=== PATIENT | male | born 1980 | race Caucasian/White ===

== ENCOUNTER 2024-11-03 16:47 | Emergency (ER) | payer OTHER, SELFPAY ==
[2024-11-03 16:53] VITALS: BP 152/91; PULSE 93; RESP 20; TEMP 37.2; O2SAT 97
--- NOTE | 2024-11-03 17:01 | ED.AMS ---
HPI - Altered Mental Status General Chief Complaint: Altered Mental Status <Leticia Rosado PA-C - Last Filed: 11/03/24 19:28> Stated Complaint: possible Narcan overdose? <Leticia Rosado PA-C - Last Filed: 11/03/24 19:28> Time Seen by Provider: 11/03/24 17:03 <Leticia Rosado PA-C - Last Filed: 11/03/24 19:28> Focused HPI: Patient is a 44-year-old male who presents the ED with report of altered mental status. Mother at bedside assisted in providing information. Mother reports patient has a history of schizoaffective/bipolar disorder. Has been off of his medications for at least the last 1 year. Has been previously seen by [facility]. Reports over the last 1 week, patient has been reporting he has been hearing voices inside his head. Voices have been telling him to do and not do things. Patient reports that he smoked weed and speed today. He then states he began freaking out. Per mother, patient then drove himself to [facility] today and used his girlfriend's points to buy himself Narcan. He then used the narcan. Patient is unsure if there was fentanyl in the speed. Unsure why he used the narcan. Denied trouble breathing. Patient unable to tell me if he is having any thoughts or voices telling him to harm himself. GENERAL: Fidgety, unable to sit still, and in no acute distress. HEAD: Normocephalic, atraumatic. CHEST: Clear to auscultation. ?No respiratory distress. HEART: Tachycardic with regular rhythm.? NEURO: ?Alert and oriented x3. No focal deficits PSYCHIATRIC: Rapid quiet speech, not appropriate to conversation, flat affect. Patient screened in triage and initial orders placed.? ?Additional care and disposition to be based upon?diagnostic testing and treatment. <Leticia Rosado PA-C - Last Filed: 11/03/24 19:28> Source: patient and family <ALEC Valdivia Last Filed: 11/03/24 19:28> Mode of arrival: ambulatory <Leticia Rosado PA-C - Last Filed: 11/03/24 19:28> Limitations: altered mental status <Leticia Rosado PA-C - Last Filed: 11/03/24 19:28> History of Present Illness HPI narrative: Agree with the HPI above. Family member and girlfriend at bedside provides the majority collateral formation. Patient is awake and answering questions but states that he feels like he is ?in a game show , the world is narcissistic, , and other paranoid delusions . He denies any homicidal or suicidal ideation. Admits to smoking a notes substance today potentially methamphetamine according to the family. No fentanyl or opiate use. Narcan had no effect on the patient. <Wil Rubio MD - Last Filed: 11/03/24 21:49> Related Data Allergies/Adverse Reactions: Allergies Allergy/AdvReac Type Severity Reaction Status Date / Time benztropine Allergy Unknown Unknown Verified 01/04/17 08:46 quetiapine Allergy Unknown Nervousness Verified 01/04/17 08:45 Sulfa (Sulfonamide Allergy Unknown Verified 08/29/17 21:20 Antibiotics) <Leticia Rosado PA-C - Last Filed: 11/03/24 19:28> Review of Systems Review of Systems: As reviewed above in HPI <Wil Rubio MD - Last Filed: 11/03/24 21:49> Exam Narrative: GENERAL: Fidgety, not any acute distress, avoids eye contact and has a flat affect HEAD: [Normocephalic, atraumatic.] EYES: [PERRLA and EOMI.] ENT: Nares clear, no rhinorrhea or epistaxis. Mucous membranes moist. NECK: Supple. CHEST: [Clear to auscultation. No respiratory distress.] HEART: [Regular rate and rhythm]. No murmur heard. [Normal peripheral pulses.] ABDOMEN: [Soft, nondistended], [nontender], [No rigidity or guarding] EXTREMITIES: Normal range of motion. [No edema.] SKIN: Warm, dry, no rash. NEURO: [No focal deficits]. Alert and oriented [x3.] PSYCH: Fidgeting, not in any distress, avoids eye contact and flat affect. Denies homicidal or suicide ideation. Endorses paranoia and substance use <Wil Rubio MD - Last Filed: 11/03/24 21:49> Course Vital Signs Vital signs: Vital Signs Temperature 37.2 C 11/03/24 16:53 Pulse Rate 93 11/03/24 16:53 Respiratory Rate 20 11/03/24 16:53 Blood Pressure 152/91 H 11/03/24 16:53 Pulse Oximetry 97 11/03/24 16:53 Oxygen Delivery Room Air 11/03/24 16:53 Temperature 37.2 C 11/03/24 16:53 Pulse Rate 52 L 11/03/24 19:28 Respiratory Rate 16 11/03/24 19:28 Blood Pressure 155/88 H 11/03/24 19:28 Pulse Oximetry 97 11/03/24 19:28 Oxygen Delivery Room Air 11/03/24 16:53 <Leticia Rosado PA-C - Last Filed: 11/03/24 19:28> Vital Signs Temperature 37.2 C 11/03/24 16:53 Pulse Rate 93 11/03/24 16:53 Respiratory Rate 20 11/03/24 16:53 Blood Pressure 152/91 H 11/03/24 16:53 Pulse Oximetry 97 11/03/24 16:53 Oxygen Delivery Room Air 11/03/24 16:53 Temperature 37.2 C 11/03/24 16:53 Pulse Rate 52 L 11/03/24 19:28 Respiratory Rate 16 11/03/24 19:28 Blood Pressure 155/88 H 11/03/24 19:28 Pulse Oximetry 97 11/03/24 19:28 Oxygen Delivery Room Air 11/03/24 16:53 <Wil Rubio MD - Last Filed: 11/03/24 21:49> MDM - Altered Mental Status MDM Narrative Medical decision making narrative: MSE by BRIGITTE in triage. <Leticia Rosado PA-C - Last Filed: 11/03/24 19:28> MSE by BRIGITTE in triage. 44-year-old male with history of bipolar schizoaffective disorder presenting to the emergency department for evaluation of possible psychiatric illness. Patient has not been taking his medications in over a year according to his family member. He was smoking unknown substance today potentially weed laced with something like methamphetamine as that is when his girlfriend at bedside thinks happened. Patient ended up using Narcan today without any signs of opiate use or opiate toxidrome. Patient had no effect with this medication. Patient is very fidgety, has a flat affect, expresses paranoia and delusions. He appears as he has somewhat flattened affect and denies any homicidal or suicidal ideation and does not appear to be a present threat to himself or others based on his statements, exam and historical features. He has normal vital signs. Family is concerned that he has had tardive dyskinesia and worsening psychiatric illness and requesting psychiatric evaluation. He is not any distress and currently cooperative. Psychiatric clearance workup ordered, blood drawn. COVID swab obtained. Prior to completing his workup I was informed by nursing staff that patient had eloped from the ED. <Wil Rubio MD - Last Filed: 11/03/24 21:49> Medical Records Attestation: I reviewed the patient's medical records. <Wil Rubio MD - Last Filed: 11/03/24 21:49> Lab Data Attestation: I reviewed the patient's lab results. <Wil Rubio MD - Last Filed: 11/03/24 21:49> Result diagrams: 11/03/24 19:59 11/03/24 19:59 <Leticia Rosado PA-C - Last Filed: 11/03/24 19:28> Labs: Lab Results 11/03/24 11/03/24 11/03/24 Range/Units 19:34 19:59 21:27 WBC 13.0 H (4.5-10.0) K/mm3 RBC 4.90 (4.6-6.20) M/mm3 Hgb 14.2 (14.0-18.0) g/dL Hct 42.6 (42.0-52.0) % MCV 86.9 (80-100) fl MCH 29.0 (26-34) pg MCHC 33.3 (32-36) g/dl RDW 13.2 (11.5-14.5) % Plt Count 461 H (150-375) k/mm3 MPV 8.8 (7.4-10.4) fl Immature Gran % (Auto) 0.3 (0-0.5) % Neut % (Auto) 76.8 H (45.5-73.1) % Lymph % (Auto) 16.1 L (18.3-44.2) % Coke % (Auto) 6.0 (2.6-8.5) % Eos % (Auto) 0.5 (0-4.4) % Baso % (Auto) 0.3 (0.2-1.2) % Lymph # (Auto) 2.09 (0.9-3.2) K/mm3 Coke # (Auto) 0.8 H (0.1-0.6) K/mm3 Eos # (Auto) 0.1 (0-0.3) K/mm3 Baso # (Auto) 0.0 (0.0-0.1) K/mm3 Abs Immat Gran (auto) 0.04 H (0.00-0.031) K/mm3 Absolute Neuts (auto) 9.9 H (1.3-6.7) K/mm3 Absolute Nucleated RBC 0.000 (0.0-0.012) K/mm3 Nucleated RBC % 0.0 (0.0-0.2) % Sodium 137 (137-145) mmol/L Potassium 4.2 (3.4-5.0) mmol/L Chloride 102 (98-107) mmol/L Carbon Dioxide 27 (22-30) mmol/L Anion Gap 8 (4-12) mmol/L BUN 8 L (9-20) mg/dL Creatinine 0.92 (0.7-1.3) mg/dL Estim Creat Clear Calc 80 ml/min Estimated GFR > 60 (59 - ) Glucose 117 H (65-110) mg/dL Calcium 9.7 (8.4-10.2) mg/dL Total Bilirubin 0.6 (0.2-1.3) mg/dL AST 26 (17-59) U/L ALT 23 (6-50) U/L Alkaline Phosphatase 71 (38-126) U/L Total Protein 7.0 (6.3-8.2) g/dL Albumin 4.5 (3.5-5.1) g/dL TSH 2.190 (0.465-4.680) uIU/mL Urine Color Yellow (Yellow) Urine Appearance Clear (Clear) Urine pH 6.5 (5.0-9.0) Ur Specific [place] 1.011 (1.001-1.035) Urine Protein Negative (Negative) mg/dL Urine Glucose (UA) Negative (Negative) mg/dL Urine Ketones Negative (Negative) mg/dL Ur Blood (Man) Negative (Negative) Urine Nitrate Negative (Negative) Urine Bilirubin Negative (Negative) Urine Urobilinogen 0.2 (<2.0) mg/dL Leukocyte Esterase Rfl Negative (Negative) ABUNDIO/UL Salicylates < 1.0 L (2-20) mg/dL Urine Opiates Screen Pending Urine Methadone Screen Pending Acetaminophen < 10 L (10-30) ug/mL Ur Barbiturates Screen Pending Ur Phencyclidine Scrn Pending Ur Amphetamine Screen Pending U Benzodiazepines Scrn Pending Urine Cocaine Screen Pending U Cannabinoids Screen Pending Ethyl Alcohol < 10 (<10) mg/dL SARS-CoV-2 RNA (RT-PCR) Negative (Negative) <Leticia Rosado PA-C - Last Filed: 11/03/24 19:28> Lab Results 11/03/24 11/03/24 11/03/24 Range/Units 19:34 19:59 21:27 WBC 13.0 H (4.5-10.0) K/mm3 RBC 4.90 (4.6-6.20) M/mm3 Hgb 14.2 (14.0-18.0) g/dL Hct 42.6 (42.0-52.0) % MCV 86.9 (80-100) fl MCH 29.0 (26-34) pg MCHC 33.3 (32-36) g/dl RDW 13.2 (11.5-14.5) % Plt Count 461 H (150-375) k/mm3 MPV 8.8 (7.4-10.4) fl Immature Gran % (Auto) 0.3 (0-0.5) % Neut % (Auto) 76.8 H (45.5-73.1) % Lymph % (Auto) 16.1 L (18.3-44.2) % Coke % (Auto) 6.0 (2.6-8.5) % Eos % (Auto) 0.5 (0-4.4) % Baso % (Auto) 0.3 (0.2-1.2) % Lymph # (Auto) 2.09 (0.9-3.2) K/mm3 Coke # (Auto) 0.8 H (0.1-0.6) K/mm3 Eos # (Auto) 0.1 (0-0.3) K/mm3 Baso # (Auto) 0.0 (0.0-0.1) K/mm3 Abs Immat Gran (auto) 0.04 H (0.00-0.031) K/mm3 Absolute Neuts (auto) 9.9 H (1.3-6.7) K/mm3 Absolute Nucleated RBC 0.000 (0.0-0.012) K/mm3 Nucleated RBC % 0.0 (0.0-0.2) % Sodium 137 (137-145) mmol/L Potassium 4.2 (3.4-5.0) mmol/L Chloride 102 (98-107) mmol/L Carbon Dioxide 27 (22-30) mmol/L Anion Gap 8 (4-12) mmol/L BUN 8 L (9-20) mg/dL Creatinine 0.92 (0.7-1.3) mg/dL Estim Creat Clear Calc 80 ml/min Estimated GFR > 60 (59 - ) Glucose 117 H (65-110) mg/dL Calcium 9.7 (8.4-10.2) mg/dL Total Bilirubin 0.6 (0.2-1.3) mg/dL AST 26 (17-59) U/L ALT 23 (6-50) U/L Alkaline Phosphatase 71 (38-126) U/L Total Protein 7.0 (6.3-8.2) g/dL Albumin 4.5 (3.5-5.1) g/dL TSH 2.190 (0.465-4.680) uIU/mL Urine Color Yellow (Yellow) Urine Appearance Clear (Clear) Urine pH 6.5 (5.0-9.0) Ur Specific [place] 1.011 (1.001-1.035) Urine Protein Negative (Negative) mg/dL Urine Glucose (UA) Negative (Negative) mg/dL Urine Ketones Negative (Negative) mg/dL Ur Blood (Man) Negative (Negative) Urine Nitrate Negative (Negative) Urine Bilirubin Negative (Negative) Urine Urobilinogen 0.2 (<2.0) mg/dL Leukocyte Esterase Rfl Negative (Negative) ABUNDIO/UL Salicylates < 1.0 L (2-20) mg/dL Urine Opiates Screen Pending Urine Methadone Screen Pending Acetaminophen < 10 L (10-30) ug/mL Ur Barbiturates Screen Pending Ur Phencyclidine Scrn Pending Ur Amphetamine Screen Pending U Benzodiazepines Scrn Pending Urine Cocaine Screen Pending U Cannabinoids Screen Pending Ethyl Alcohol < 10 (<10) mg/dL SARS-CoV-2 RNA (RT-PCR) Negative (Negative) <Wil Rubio MD - Last Filed: 11/03/24 21:49> Discharge Plan Discharge Clinical Impression: History of psychiatric disorder, History of methamphetamine use <Leticia Rosado PA-C - Last Filed: 11/03/24 19:28> Patient Disposition: Elopement After Seen by Prov <Leticia Rosado PA-C - Last Filed: 11/03/24 19:28> Condition: Stable <Leticia Rosado PA-C - Last Filed: 11/03/24 19:28> Patient Language: Upper Sorbian <Leticia Rosado PA-C - Last Filed: 11/03/24 19:28> Follow-up/Referrals: PHYSICIAN,FRUIT BUYER [Primary Care Provider] - <Leticia Rosado PA-C - Last Filed: 11/03/24 19:28> Time of Disposition: 21:49 <Leticia Rosado PA-C - Last Filed: 11/03/24 19:28> 21:49 <Wil Rubio MD - Last Filed: 11/03/24 21:49>
--- OUTSIDE RECORDS SUMMARY | 2024-11-03 17:56 | XMS_ITS | Patient Health Record ---
Author Organization [facility] Address [address] [place] [address] Care Team Providers Care Extension Service Agent Name Role Phone Tami Agrawal Unavailable [phone] Allergies Allergen (clinical drug ingredient) Drug/Non Drug Allergy documented on EMR Reaction Allergy Type Onset Date Status Substance with sulfonamide structure and antibacterial mechanism of action (substance) Sulfa Antibiotics Unknown Drug Allergy Active Results Component Value Reference Range Notes 12 Panel Urine Drug Screen Reviewed date:02/17/2024 12:35:13 PM Interpretation: Performing Lab: Notes/Report: THC P MARIAH N MOP (OPI) N AMP P MET P BAR N BZO N MDMA N MTD N OXY N PCP N BUP N Reason For Referral No Information Medications Medication SIG (Take, Route, Fr equency, Duration) Notes Start Date End Date Status OLANZapine 5 MG 1 tablet Orally Once a day for 30 days 02/17/2024 Active Propranolol HCl 10 MG 1 tablet Orally tw o times a day for 30 days 02/17/2024 Active Social History Tobacco Use: Social History Observation Description Date Details (start date - stop date) Current Smoker NA - NA Sex Assigned At : Social History Observation Description Sex Assigned At Male Tobacco Control (Standard) Question Answer Notes Tobacco use: Current smoker How often do you smoke cigarettes? Some days, bu t not every day How many cigarettes a day do you smoke? 5 or les s How soon after you wake up d o you smoke your first cigarette? After 60 minutes Are you interested in quitting? Not ready to alla t Additional Findings: Tobacco user e-cigarette Problems Problem Type SNOMED Code ICD Code Onset Dates Problem Status W/U Status Risk Notes Problem Tobacco user (900749329) Nicotine dependence, unspecified, uncomplicated (F17.200) Active confirmed Problem Schizoaffective disorder, bipolar type (52248713) Schizoaffective disorder, bipolar type (F25.0) Active confirmed Problem Anxiety (70185113) Anxiety (F41.9) Active confi rmed Vital Signs Heart Rate 81 /min 02/17/2024 Blood pressure diastolic 78 mm Hg 02/17/2024 Oximetry 98 % 02/17/2024 Blood pressure systolic 122 mm Hg 02/17/2024 Weight 154.8 lbs 02/17/2024 Encounters Encounter Location Date Provider Diagnosis [address] [place] [address] 02/17/2024 Tami Agrawal Nicotine dependence, unspecified, uncomplicated F17.200 ; Schizoaffective disorder, bipolar type F25.0 and Anxiety F41.9 Assessments Encounter Date Diagnosis (ICD Code) Assessment Notes Treatment Notes Treatment Clinical Notes Section Notes 02/17/2024 Nicotine dependence, unspecified, uncomplicated (ICD-10 - F17.200) 02/17/2024 Schizoaffective disorder, bipolar type (ICD-10 - F25.0) Will restart Olanzapine at this time to aid paranoia, kendra type symptoms and labile moods. Pt reports that he has done well on medication in the past. Will order routine labs at next visit. Will repeat UDS at next visit. Will reviewe prior records obtain from [facility] when pt was seen at [facility] in the past 02/17/2024 Anxiety (ICD-10 - F41.9) Will restart Propranolol 10mg BID at this time to aid anxiety. B/P is WNL today in office. Pt reports that he has done well on med in the past. Enocouraged pt to schedule therapy appt. Pt denies SI/HI at this time. 02/17/2024 Other Discussed treatment plan; patient is agreeable and accepting of treatment plan. Patient denies further questions or concerns at this time. Return to clinic 4 weeksObtain lab work at next visit Encouraged counseling Discussed sleep hygiene and caffeine intakeDiscussed medication efficacy and purpose; also discussed medication interactions, risks, benefits and side effects. No additional questions concerning medications at this time.The Patient/Guardian asked appropriate questions, appeared to understand the answers, and decided to accept the treatment and continue being followed.The Patient/Guardian is aware of the need to contact the office or return for an earlier appointment if any problems or concerns arise. May also contact the 24-hour crisis hotline (R), refer to the closest emergency room or call 911 if new symptoms arise of existing symptoms worsen; the Patient/Guardian is aware that this would apply to symptoms such as: suicidal ideation, homicidal ideation, high risk behaviors, manic symptoms, psychotic symptoms, physical symptoms, or any other symptoms that may be dangerous to self or others. Plan Of Treatment No Information Insurance Providers Payer Name Payer Address Payer Phone Subscriber Number Group Number Insured Name Patient Relationship to Insured Coverage Start Date Coverage End Date [employer] [address] [place] [address] [phone] [id number] Donell Berrios Self - patient is the insured 4 [employer] [address] [place] [address] [phone] [id number] Donell Berrios Self - patient is the insured 4 Medical (General) History Medical History History ICD Code schizophrenic bipolar hernia broken teeth HTN Surgical History Surgery Date(Month/Year) hernia repair Hospitalization History Reason Date(Month/Year)
--- OUTSIDE RECORDS SUMMARY | 2024-11-03 17:56 | XMS_ITS | Patient Health Summary ---
Author Organization [facility] Address [address] [place] [address] Care Team Providers Care Laboratory Specialist Name Role Phone Stephenie Bernal MD Primary Care Provider [phone] Note from [facility],non-owned Affiliates and Associated Physician Practices is amultiple site organization consisting of ambulatory clinics and hospital sitesin [place], [place], [place] and [place]. This disclosure is being madepursuant to the Care Everywhere program and may not contain all information available regarding this patient. Last updated 18.[facility] [employer] Allergies * Sulfa Drugs(Unknown) -Medium Criticality Medications * Be aware that medications may not be up to date on this document. Alwaysverify current medications with the patient. * escitalopram (LEXAPRO) 20 MG tablet Take 20 mg by mouth once daily. * risperiDONE (RISPERIDONE) 4 MG tablet Take 4 mg by mouth at bedtime. * naltrexone (REVIA) 50 MG tablet Take 50 mg by mouth once daily. * mirtazapine (REMERON) 15 MG tablet Take 15 mg by mouth at bedtime. * busPIRone (BUSPAR) 15 MG tablet Take 15 mg by mouth 2 times daily. * multivitamin daily (THERAGRAN) tablet(Started 07/04/2013) Take 1 Tab by mouth once daily. * TRAZODONE HCL PO Take 2 Tabs by mouth at bedtime. * ondansetron, disintegrating, (ZOFRAN ODT) 4 MG tablet(Started 01/17/2014) Take 1 Tab by mouth every 6 hours as needed for Nausea/Vomiting. Allow tablet to dissolve on the tongue Active Problems Problem Noted Date Diagnosed Date Alcoholic ketoacidosis 07/03/2013 Alcohol abuse 07/03/2013 N&V (nausea and vomiting) 03/01/2013 Dehydration 03/01/2013 Acute renal failure (ARF) 03/01/2013 Hyponatremia 03/01/2013 ETOH abuse 03/01/2013 Depression 03/01/2013 Schizophrenia 03/01/2013 Bipolar 2 disorder 03/01/2013 Social History Tobacco Use Types Packs/Day Years Used Date Smoking Tobacco: Every Day Cigarettes Smokeless Tobacco: Never Tobacco Cessation:Ready to Q uit: No; Counseling Given: Yes Alcohol Use Standard Drinks/Week Comments No 0 (1 standard drink = 0.6 oz pure alcohol) Has not had a drink in 9 weeks. Sex and Gender Information Value Date Recorded Sex Assigned at Not on file Gender Identity Not on file Sexual Orientation Not on file Last Filed Vital Signs Vital Sign Reading Time Taken Comments Blood Pressure 139/88 01/17/2014 10:31 PM CDT Pulse 83 01/17/2014 10:00 PM CDT Temperature 36.8 C (98.2 F) 01/17/2014 10:00 PM CDT Respiratory Rate 16 01/17/2014 10:00 PM CDT Oxygen Saturation 96% 01/17/2014 10:31 PM CDT Inhaled Oxygen Concentration - - Weight 93 kg (205 lb) 01/17/2014 7:12 PM CDT Height 180.3 cm (5' 11 ) 01/17/2014 7:12 PM CDT Body Mass Index 28.59 01/17/2014 7:12 PM CDT Procedures * URINALYSIS REFLEX MICROSCOPIC REFLEX CULTURE(Performed 01/17/2014) * LIPASE BLOOD(Performed 01/17/2014) * COMPREHENSIVE METABOLIC PANEL(Performed 01/17/2014) * CBC W AUTO DIFFERENTIAL(Performed 01/17/2014) * CBC W AUTO DIFFERENTIAL(Performed 07/04/2013) Performed for ETOH abuse * BASIC METABOLIC PANEL (CALCIUM TOTAL)(Performed 07/04/2013) Performed for ETOH abuse * ALCOHOL ETHYL BLOOD(Performed 07/03/2013) * C-REACTIVE PROTEIN(Performed 07/03/2013) * COMPREHENSIVE METABOLIC PANEL(Performed 07/03/2013) * CBC W AUTO DIFFERENTIAL(Performed 07/03/2013) * LIPASE BLOOD(Performed 05/14/2013) * COMPREHENSIVE METABOLIC PANEL(Performed 05/14/2013) * CBC W AUTO DIFFERENTIAL(Performed 05/14/2013) * CARDIAC RHYTHM STRIP ORDER(Performed 03/02/2013) * CBC W AUTO DIFFERENTIAL(Performed 03/01/2013) * BASIC METABOLIC PANEL (CALCIUM TOTAL)(Performed 03/01/2013) * URINALYSIS REFLEX TO MICROSCOPIC NO CULTURE(Performed 02/28/2013) * URINE DRUG SCREEN IMMUNOASSAY(Performed 02/28/2013) * COMPREHENSIVE METABOLIC PANEL(Performed 02/28/2013) * CBC W AUTO DIFFERENTIAL(Performed 02/28/2013) * ALCOHOL ETHYL BLOOD(Performed 02/28/2013) Results * (ABNORMAL) URINALYSIS ROUTINE W/REFLEX TO CULTURE (01/17/2014 9:24 PM CDT) Color UA Yellow Straw, Yellow, Dark Yellow 01/17/2014 9:43 PM CDT [facility] Clarity UA Clear 01/17/2014 9:43 PM CDT [facility] Specific [place]well UA 1.025 1.005 - 1.030 01/17/2014 9:43 PM T [facility] pH UA 7.0 5.0 - 8.0 pH 01/17/2014 9:43 PM CDT [facility] Protein UA Negative Negative 01/17/2014 9:43 PM CDT [facility] Blood UA Negative Negative 01/17/2014 9:43 PM CDT [facility] Leukocyte UA Negative Negative 01/17/2014 9:43 PM CDT [facility] Nitrite UA Negative Negative 01/17/2014 9:43 PM CDT [facility] Glucose UA Negative Negative 01/17/2014 9:43 PM T [facility] Ketone UA 1+(A) Negative 01/17/2014 9:43 PM T [facility] Bilirubin UA Negative Negative 01/17/2014 9:43 PM T [facility] Urobilinogen UA 1.0 0.1 - 1.0 EU/dL 01/17/2014 9:43 PM T [facility] Reflex Status Culture not indicated 01/17/2014 9:43 PM [facility] Urine URINE SPECIMEN OBTAINED BY CLEAN CATCH PROCEDURE / Unknown 01/17/2014 9:24 PM CDT 01/17/2014 9:29 PM CDT Ashely Hanson MD LAB - URINALYSIS ORD ERABLES [facility] [address] [address] * (ABNORMAL) CBC W AUTO DIFFERENTIAL (01/17/2014 8:07 PM CDT) Only the most recent of6 resultswithin the time period is included. WBC 15.8(H) 4.4 - 10.7 x10^9/L 01/17/2014 8:17 PM [facility] RBC 5.16 3.80 - 5.40 x10^12/L 01/17/2014 8:17 PM [facility] Hemoglobin 16.3 12.0 - 17.6 gm/dL 01/17/2014 8:17 PM [facility] Hematocrit 45.4 35.2 - 51.7 % 01/17/2014 8:17 PM [facility] MCV 88.0 80.7 - 98.3 fl 01/17/2014 8:17 PM [facility] MCH 31.6 26.7 - 34.0 pg 01/17/2014 8:17 PM [facility] MCHC 35.9 30.8 - 35.9 gm/dL 01/17/2014 8:17 PM [facility] Platelet Count 279 153 - 416 x10^9/L 01/17/2014 8:17 PM [facility] RDW-CV 14.0 12.1 - 14.9 % 01/17/2014 8:17 PM [facility] MPV 9.9 9.4 - 12.9 fl 01/17/2014 8:17 PM [facility] Neutrophils % 83.8(H) 44.0 - 73.0 % 01/17/2014 8:17 PM [facility] Lymphocytes % 9.6(L) 20.0 - 43.0 % 01/17/2014 8:17 PM [facility] Monocytes % 4.9(L) 5.0 - 13.0 % 01/17/2014 8:17 PM [facility] Eosinophils % 1.1 0.0 - 6.0 % 01/17/2014 8:17 PM [facility] Basophils % 0.3 0.0 - 2.0 % 01/17/2014 8:17 PM [facility] Immature Granulocytes 0.3 0 - 1 % 01/17/2014 8:17 PM [facility] Neutrophil Absolute 13.23(H) 2.01 - 7.14 x10^9/L 01/17/2014 8:17 PM CDT [facility] Lymphocytes Absolute 1.51 1.07 - 3.94 x10^9/L 01/17/2014 8:17 PM CDT [facility] Monocytes Absolute 0.78 0.26 - 1.07 x10^9/L 01/17/2014 8:17 PM CDT [facility] Eosinophils Absolute 0.17 0 - 0.47 x10^9/L 01/17/2014 8:17 PM CDT [facility] Basophils Absolute 0.04 0 - 0.08 x10^9/L 01/17/2014 8:17 PM CDT [facility] nRBC Auto 0 /100 WBC 01/17/2014 8:17 PM T [facility] Blood BLOOD SPECIMEN / Unknown 01/17/2014 8:07 PM CDT 01/17/2014 8:15 PM CDT Ashely Hanson MD LAB - HEMATOLOGY ORD ERABLES [facility] [address] [place] [address] * COMPREHENSIVE METABOLIC PANEL (01/17/2014 8:07 PM CDT) Only the most recent of4 resultswithin the time period is included. Glucose 98 74 - 106 mg/dL 01/17/2014 8:32 PM [facility] Sodium 137 136 - 145 mmol/L 01/17/2014 8:32 PM T [facility] Potassium 3.7 3.5 - 5.1 mmol/L 01/17/2014 8:32 PM [facility] Chloride 104 98 - 107 mmol/L 01/17/2014 8:32 PM T [facility] CO2 24 22 - 31 mmol/L 01/17/2014 8:32 PM CDT [facility] Calcium 9.1 8.5 - 10.1 mg/dL 01/17/2014 8:32 PM [facility] Anion Gap 9 5 - 15 mmol/L 01/17/2014 8:32 PM CDT [facility] BUN 10 7 - 21 mg/dL 01/17/2014 8:32 PM T [facility] Creatinine 0.81 0.50 - 1.30 mg/dL 01/17/2014 8:32 PM CDT [facility] eGFR by MDRD >60 >60 mL/min/1.7 3m2 01/17/2014 8:32 PM CDT [facility] eGFR by MDRD >60 >60 mL/min/1.7 3m2 01/17/2014 8:32 PM CDT [facility] Alkaline Phosphatase 68 38 - 126 U/L 01/17/2014 8:32 PM CDT [facility] ALT 28 12 - 78 U/L 01/17/2014 8:32 PM CDT [facility] AST 16 5 - 40 U/L 01/17/2014 8:32 PM CDT [facility] Protein Total 7.9 6.4 - 8.2 gm/dL 01/17/2014 8:32 PM CDT [facility] Albumin 4.5 3.4 - 5.0 gm/dL 01/17/2014 8:32 PM CDT [facility] Bilirubin Total 0.5 0.2 - 1.0 mg/dL 01/17/2014 8:32 PM CDT [facility] Blood BLOOD SPECIMEN / Unknown 01/17/2014 8:07 PM CDT 01/17/2014 8:15 PM CDT Ashely Hanson MD LAB - CHEMISTRY ORDBoo DÍAZ Performing Organization Address City/[facility]/ZIP Co de Phone Number [facility] [address] [place] [address] * LIPASE BLOOD (01/17/2014 8:07 PM CDT) Only the most recent of2 resultswithin the time period is included. Lipase 206 73 - 393 U/L 01/17/2014 8:32 PM CDT [facility] Blood BLOOD SPECIMEN / Unknown 01/17/2014 8:07 PM CDT 01/17/2014 8:15 PM CDT Ashely Hanson MD LAB - CHEMISTRY MALLORY DÍAZ [facility] [address] [address] * (ABNORMAL) BASIC METABOLIC PANEL (CALCIUM TOTAL) (07/04/2013 5:56 AM [facility]) Only the most recent of2 resultswithin the time period is included. Glucose 108(H) 74 - 106 mg/dL 07/04/2013 6:[address] [facility] Sodium 136 136 - 145 mmol/L 07/04/2013 6:[address] [facility] Potassium 3.5 3.5 - 5.1 mmol/L 07/04/2013 6:[address] [facility] Chloride 100 98 - 107 mmol/L 07/04/2013 6:[address] [facility] CO2 24 22 - 31 mmol/L 07/04/2013 6:[address] [facility] Calcium 8.1(L) 8.5 - 10.1 mg/dL 07/04/2013 6:[address] [facility] Anion Gap 12 5 - 15 mmol/L 07/04/2013 6:[address] [facility] BUN 7 7 - 21 mg/dL 07/04/2013 6:[address] [facility] Creatinine 0.76 0.50 - 1.30 mg/dL 07/04/2013 6:[address] [facility] eGFR by MDRD >60 >60 mL/min/1.7 3m2 07/04/2013 6:[address] [facility] eGFR by MDRD >60 >60 mL/min/1.7 3m2 07/04/2013 6:[address] [facility] Blood BLOOD SPECIMEN / Unknown Lab Venipuncture / Unknown 07/04/2013 5:56 AM [facility] 07/04/2013 5:59 AM [facility] Fredrick Rosado MD LAB - CHEMISTRY MALLORY DÍAZ [facility] Organization Address City/State/ZIP Co de Phone Number [facility] [address] [place] [address] * C-REACTIVE PROTEIN (07/03/2013 4:57 PM [facility]) C-Reactive Protein <0.29 <0.30 mg/dL 07/03/2013 5:[address] [facility] Blood BLOOD SPECIMEN / Unknown 07/03/2013 4:57 PM [facility] 07/03/2013 5:00 PM [facility] Earl Goodman MD LAB - CORRECTIONAL THERAPY TEACHER RY ORDERABLES Performing Organization Address [facility] Co de Phone Number [facility] [address] [place] [address] * (ABNORMAL) ALCOHOL ETHYL BLOOD (07/03/2013 4:57 PM [facility]) Only the most recent of2 resultswithin the time period is included. Ethanol 228(H) <10 mg/dL 07/03/2013 5:16 PM [facility] Ethanol Calculated 0.228(H) <0.100 gm/dL 07/03/2013 5:16 PM [facility] Blood BLOOD SPECIMEN / Unknown 07/03/2013 4:57 PM [facility] 07/03/2013 5:00 PM [facility] Narrative [facility] - 07/03/2013 5:16 PM [facility] Non Legal Serum Alcohol Earl Goodman MD LAB - CORRECTIONAL THERAPY TEACHER RY ORDERABLES Performing Organization Address [facility] Co de Phone Number [facility] [address] [place] [address] * CARDIAC RHYTHM STRIP ORDER (03/02/2013 2:24 PM CDT) Narrative 03/02/2013 2:24 PM CDT Procedure Note Document, Scanned - 03/02/2013 2:24 PM CDT Scanned Document CARDIAC SERVICES ORD ERABLES * (ABNORMAL) URINALYSIS ROUTINE AUTO (02/28/2013 12:41 PM CDT) Color UA Yellow Straw, Yellow, Dark Yellow 02/28/2013 12:55 PM CDT [facility] Clarity UA Clear 02/28/2013 12:55 PM CDT [facility] Specific [place]well UA 1.010 1.005 - 1.030 02/28/2013 12:55 PM CDT [facility] pH UA 7.5 5.0 - 8.0 02/28/2013 12:55 PM CDT [facility] Protein UA Negative Negative 02/28/2013 12:55 PM CDT [facility] Blood UA Negative Negative 02/28/2013 12:55 PM CDT [facility] Leukocyte UA Negative Negative 02/28/2013 12:55 PM CDT [facility] Nitrite UA Negative Negative 02/28/2013 12:55 PM CDT [facility] Glucose UA Negative Negative 02/28/2013 12:55 PM CDT [facility] Ketone UA 2+(A) Negative 02/28/2013 12:55 PM CDT [facility] Bilirubin UA Negative Negative 02/28/2013 12:55 PM CDT [facility] Urobilinogen UA 1.0 0.1 - 1.0 EU/dL 02/28/2013 12:55 PM CDT [facility] Urine Microscopy Urine microscopy not indicated 02/28/2013 12:55 PM CDT [facility] Urine specimen (specimen) URINE SPECIMEN OBTAINED BY CLEAN CATCH PROCEDURE / Unknown Collection / Unknown 02/28/2013 12:41 PM CDT 02/28/2013 12:46 PM CDT Nani Tsang MD LAB - URINALYSIS ORD ERABLES Performing Organization Address City/State/[facility] Co de Phone Number [facility] [address] [place] [address] * (ABNORMAL) DRUG SCREEN TOX URINE PANEL (02/28/2013 12:41 PM CDT) [facility] Amphetamines Screen Urine Not Detected Not Detected 02/28/2013 12:58 PM CDT [facility] Barbiturates Screen Urine Not Detected Not Detected 02/28/2013 12:58 PM T [facility] Benzodiazepines Screen Urine Not Detected Not Detected 02/28/2013 12:58 PM [facility] Cannabinoids Screen Urine Detected(A) Not Detected 02/28/2013 12:58 PM CDT [facility] Cocaine Screen Urine Not Detected Not Detected 02/28/2013 12:58 PM T [facility] Methadone Screen Urine Not Detected Not Detected 02/28/2013 12:58 PM T [facility] Opiate Screen Urine Not Detected Not Detected 02/28/2013 12:58 PM T [facility] Phencyclidine Screen Urine Not Detected Not Detected 02/28/2013 12:58 PM T [facility] Urine specimen (specimen) URINE / Unknown Collection / Unknown 02/28/2013 12:41 PM CDT 02/28/2013 12:46 PM CDT Narrative [facility] - 02/28/2013 12:58 PM CDT This drug screen is designed for MEDICAL purposes only. It is not to be used for legal purposes, including but not limited to worker's comp, police investigations, occupational issues, child custody, etc. Any positive result is only presumptive and must be confirmed with a separate confirmatory test ordered by the physician. Drug Screening Test Cutoff Values: AMPHETAMINES 1000 ng/ml BARBITURATES 200 ng/ml BENZODIAZEPINES 200 ng/ml CANNABINOIDS(THC) 50 ng/ml COCAINE 300 ng/ml METHADONE 300 ng/ml OPIATES 300 ng/ml PHENCYCLIDINE(PCP)25 ng/ml Nani Tsang MD LAB - URINE CHEMISTR Y ORDERABLES [facility] [address] [place] [address] Care Teams Laboratory Specialist Relationship Specialty Start Date End Date Stephenie Bernal MD PCP - General Family Medicine 05/14/13
--- OUTSIDE RECORDS SUMMARY | 2024-11-03 17:56 | XMS_ITS | Referral Summary ---
Author Organization [facility] [employer] Address [address] [place] [address] Care Team Providers Care Fountain Clerk Name Role Phone Stephenie Benral MD Primary Care Provider [phone] Source Comments [facility] [employer],non-owned Affiliates and Associated Physician Practices is amultiple site organization consisting of ambulatory clinics and hospital sitesin [place], [place], [place] and [place]. This disclosure is being madepursuant to the Care Everywhere program and may not contain all information available regarding this patient. Last updated 18.[facility] [employer] Allergies Active Allergy Reactions Criticality Noted Date Comments Sulfa Drugs Unknown Medium 02/28/2013 Medications * Be aware that medications may not be up to date on this document. Alwaysverify current medications with the patient. Medication Sig Dispensed Refills Start Date End Date Status escitalopram (LEXAPRO) 20 MG tablet Take 20 mg by mouth once daily. Active risperiDONE (RISPERIDONE) 4 MG tablet Take 4 mg by mouth at bedtime. Active naltrexone (REVIA) 50 MG tablet Take 50 mg by mouth once daily. Active mirtazapine (REMERON) 15 MG tablet Take 15 mg by mouth at bedtime. Active busPIRone (BUSPAR) 15 MG tablet Take 15 mg by mouth 2 times daily. Active multivitamin daily (THERAGRAN) tabletIndications:ETO H abuse Take 1 Tab by mouth once daily. 07/04/2013 Active TRAZODONE HCL PO Take 2 Tabs by mouth at bedtime. Active ondansetron, disintegrating, (ZOFRAN ODT) 4 MG tablet Take 1 Tab by mouth every 6 hours as needed for Nausea/Vomiting. Allow tablet to dissolve on the tongue 20 Tab 0 01/17/2014 Active Active Problems Problem Noted Date Diagnosed Date [...] Mass Index 28.59 01/17/2014 7:12 PM CDT Plan of Treatment Not on file Advance Directives * FULL RESUSCITATION (Latest Code Status on File) Date Activated Date Inactivated Comments 07/03/2013 8:09 PM 07/04/2013 1:39 PM * FULL RESUSCITATION Date Activated Date Inactivated Comments 02/28/2013 6:49 PM 03/01/2013 3:26 PM Care Teams Fountain Clerk Relationship Specialty Start Date End Date Stephenie Bernal MD PCP - General Family Medicine 05/14/13
--- OUTSIDE RECORDS SUMMARY | 2024-11-03 17:56 | XMS_ITS ---
Author Organization Formerly [facility] Address [address] [place] [address] Care Team Providers Care Line Staker Name Role Phone Tami Agrawal Unavailable [phone] Allergies Allergen (clinical drug ingredient) Drug/Non Drug Allergy documented on EMR Reaction Allergy Type Onset Date Status Substance with sulfonamide structure and antibacterial mechanism of action (substance) Sulfa Antibiotics Unknown Drug Allergy Active REASON FOR VISIT Will be on site at for Eval, needs to be set up for zoom Medications Medication SIG (Take, Route, Fr equency, [...] W/U Status Risk Notes Problem Tobacco user (751671597) Nicotine dependence, unspecified, uncomplicated (F17.200) Active confirmed Problem Schizoaffective disorder, bipolar type (04408713) Schizoaffective disorder, bipolar type (F25.0) Active confirmed Problem Anxiety (11815439) Anxiety (F41.9) Active confi rmed Vital Signs Weight 154.8 lbs 02/17/2024 Blood pressure systolic 122 mm Hg 02/17/20 24 Blood pressure diastolic 78 mm Hg 024 Heart Rate 81 /min 02/17/2024 Oximetry 98 % 02/17/2024 Encounters Encounter Location Date Provider Diagnosis [facility] [place] [address] 02/17/2024 Tamijerrod Agrawal Nicotine dependence, unspecified, uncomplicated F17.200 ; [...] from [facility] when pt was seen at [facility] in the past 02/17/2024 Anxiety (ICD-10 - [...] May also contact the 24-hour crisis hotline ([facility]), refer to the closest emergency room or call 911 if new symptoms arise of existing symptoms worsen; the Patient/Guardian is aware that this would apply to symptoms such as: suicidal ideation, homicidal ideation, high risk behaviors, manic symptoms, psychotic symptoms, physical symptoms, or any other symptoms that may be dangerous to self or others. Plan Of Treatment Medication Medication Name Sig Start Date Stop Date Notes OLANZapine 5 MG 1 tablet Orally Once a day for 30 days 02/17/2024 Propranolol HCl 10 MG 1 tablet Orally tw o times a day for 30 days 02/17/2024 Treatment Notes Assessment Notes Schizoaffective disorder, bipolar type W ill restart Olanzapine at this time to aid paranoia, kendra type symptoms and labile moods. Pt reports that he has done well on medication in the past. Will order routine labs at next visit. Will repeat UDS at next visit. Will reviewe prior records obtain from [facility] when pt was seen at [facility] in the past Anxiety Will restart Propran olol 10mg BID at this time to aid anxiety. B/P is WNL today in office. Pt reports that he has done well on med in the past. Enocouraged pt to schedule therapy appt. Pt denies SI/HI at this time. Other Discussed treatment plan; patient is agreeable [...] may be dangerous to self or others. Next Appt Details Follow Up: 4 Weeks, Reason: Medication management - can be telehealth appt. Progress Notes * Marcos REIS:1980 ([age] yo M)Acc No.[id number]:02/17/2024 Patient: Donell Pérez ACE Provider: Kelley AGRAWAL, MSN, CUSTOMER ASSISTANCE ASSOCIATE-C, PMHNP- :1980 A ge:43 Y S ex:Male Date:02/17/2024 Address:[address] [place], [place] [id number] Check In:11:11 AM MEDICAL STAFF PHYSICIAN Subjective: * Chief Complaints: * W ill be on site at for Eval, needs to be set up for zoom * HPI: I nterim History: Emergency room visit N o. D epression Screening: PHQ-9 L ittle interest or pleasure in doing things M ore than half the days, F eeling down, depressed, or hopeless M ore than half the days, T rouble falling or staying asleep, or sleeping too much M ore than half the days, F eeling tired or having little energy S everal days, P oor appetite or overeating N ot at all,?Feeling bad about yourself or that you are a failure, or have let yourself or your family down Several days, T rouble concentrating on things, such as reading the newspaper or watching television N ot at all, M oving or speaking so slowly that other people could have noticed; or the opposite, being so fidgety or restless that you have been moving around a lot more than usual?Not at all, T houghts that you would be better off or of hurting yourself in some way Not at all, T otal Score 8 , I nterpretation M ild Depression. I ntervention?Depression Screening Findings P ositive, F ollow-Up for Depression N o Referral necessary, patient involved in behavioral health treatment .. S creening: [place] Suicide Severity Rating Scale (LF) D o you want to initiate with S creener form, 1 . Wish to be : Have you wished you were or wished you could go to sleep and not wake up? N o, 2 . Suicidal Thoughts: Have you actually had any thoughts of killing yourself? N o, 6 . Suicide Behaviour: Have you ever done anything,started to do anything, or prepared to end your life? N o, I nterpretation: L ow Risk. P reventative Health and Wellness follow-up: . M ood Disorder Questionnaire 02-13-22: Please answer each question to the best of your ability. Questions P lease answer each question to the best of your ability. H as there ever been a time period when you were not your usual self and..., Y ou felt so good or hyper that other people thought you were not your normal self or you were so hyper that you got into trouble? Y es ., Y ou were so irritable that you shouted at people or started fights or arguments? Y es ., Y ou got much less sleep than usual and found that you didn't really miss it? Y es ., Y ou felt much more self-confident than usual? N o ., Y ou were more talkative or spoke much faster than usual? Y es ., T houghts raced through your head or you couldn't slow your mind down? Y es ., Y ou were so easily distracted by things around you that you had trouble concentrating or staying on track? Y es ., Y ou had more energy than usual? Y es ., Y ou were more active or did many more things than usual? Y es ., You were more social or outgoing than usual, for example, you telephoned friends in the middle of the night? Y es ., Y ou were more interested in sex than usual? N o ., Y ou did things that were usual for you or that other people might have thought were excessive, foolish, or risky? Y es ., S pending money got you or your family in trouble? Y es ., I f you checked YES to more than one of the above, have several of these ever happened during the same period of time? Y es ., H ow much of a problem did any of these cause you - like being unable to work; having family, money or legal troubles; getting into arguments or fights? M inor problem ..? G AD-7 Screenin. Feeling nervous, anxious, or on edge 3 . 2 . Not being able to stop or control worrying 2 . 3 . Worrying too much about different things 2 .?4. Trouble sleeping/relaxing 3 . 5 . Being so restless that it is hard to sit still 3. 6 . Becoming easily annoyed or irritable 3 . 7 . Feeling afraid, as if something awful might happen 2 . G AD-7 Score T otal score 1 8 :. C SSRS Interpretation and Follow Up Plan: CSSRS Interpretation and Follow Up PlanCSSRS Interpretation and Follow Up Plan. N ew/Follow-up Patient Consult: Consent to treat S taff reviewed [facility] Consent to Treat document with the patient. The patient verbally acknowledged understanding of the document and verbally voluntarily consents to treatment at [facility]. Patient verbally authorizes [facility] to bill for these services. .. C onstitutional: Expectations of this visit- Why present now? Symptoms Present- [age]-year-old male presents to clinic via zoom for initial psychiatric evaluation. Pt showed up to office late and new evaluation was started 30 minutes late. Patient reports I was a patient of [facility] in [place] and my provider quit and I have been trying to get a new appointment. I found out who was taking her place and I was told that [place] isn't taking patients right now. I haven't been taking medications in almost 2 years; I was taking Wellbutrin, Buspar, Mirtazapine, Propranolol and Olanzapine. I am wanting to get back on Propranolol and Olanzapine at this time. I was diagnosed with Schizoaffective Disorder, Bipolar disorder in 2009. I was at [facility] Behavioral health outpatient classes from [id number]. I use drink a lot but I haven't drank since 09/02/2015. I don't plan on ever drinking again. Pt reports My Mom is on a mission and wants me to go back on my meds; I had a wellness check called on my and I had to do a 72 hour stay at [facility] in April; the retail delivery driver was surprised that I was able to get on the ambulance just fine. Pt reports I get called a bully and an asshole; I tend to say things just the way I think and my Mom liked when I just sat there. Patient currently lives with my Mom. Patient reports I have anger and irritability because my Mom says that I say stuff but I don't; I am just wanting to restart my meds to keep my Mom happy; I got arrested for two counts of assault against my Mom. Pt reports I am paranoid because of my Mom; I did go back and take some of the leftover meds. I am not having hallucinations; I was on Risperidone in the past but it was making me tired. 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 PHQ-9 score is 8 today. SHALINI-7 score is 18 today. Mood Questionnaire is (+) INITIAL [facility]: 2009; was seeing [facility] because I thought I heard a radio ? Information provided by: Patient Triggers: when people don't believe me and tell me that I made something up; I tend to point out bullshit when I see it What helps/Coping mechanisms: Listen to music Goals: I was but not anymore Sleep: I will run nonstop and I will go 2-3 days without sleeping and all of a sudden I will eat food and sometimes not Appetite: Eats food on and off Depression: 5 out of 10 Hopeless/helpless: Yes Guilty/Worthless: no but some people make me feel guilty Interest level: I stick to what I like to do Concentration: Reports issues with concentration; reports that it is scattered at times Crying spells: Yes Energy Level: it is pretty good Weight loss/Weight gain: I stay around 155-160; I was 180 before Anxiety: 10 out of 10 I am always anxious Panic Attacks: Denies Social Phobias: I enjoy being around people and talking to people Nightmares/Flashbacks: Denies Anger/irritability: yes that comes with me being told that I am making crap up Racing thoughts: Yes Distractible: Yes Indiscretion/Inhibition: Yes I believe in the innate good Risk taking: Reports sleeping around and using drugs in the past Grandiosity: Denies Increased activity: Yes Missed sleep and still felt good: Yes Talkativeness: Yes Impulsivity: Denies Suicidal Ideation: Denies Suicidal attempts: Denies Self-Harm: Denies Homicidal Ideation: Denies Hallucinations: Reports hallucinations in the past; denies current Paranoia: Reports paranoia Delusions: Reports working for [employer] in the past OCD: Yes Animal cruelty or fire setting: Denies PAST PSYCHIATRIC HISTORY: Past Diagnosis: Schizoaffective Disorder, Bipolar ADHD/learning disabilities as child: Denies past diagnosis but believes that he thinks that he has ADHD because he has issues staying on track Psychiatric Medications: Current: Past: Past: Olanzapine, Propranolol, Wellbutrin, Buspar, Mirtazapine Current meds: None Substance use: occasional marijuana use; last meth use was 1 month ago Medication Adherence: Not taking any meds at this time Medication efficacy: N/A Side effects: N/A Past Psychiatric Hospitalizations/Counseling: Hospitalizations: 72 hour hold at [facility] in 04/2023, admitted in 2009 for alcohol rehab Counseling: None MEDICAL HISTORY: Allergies: Sulfa Other Medications: None Medical Concerns: HTN, hernia, dental issues Therapist: None Primary Care Physician: None FAMILY HEALTH HISTORY: Jared gutierrez: Narcissistic personality Mother: Chele SOCIAL HISTORY: Smoking history: Smokes daily X 11 years Drug/alcohol use: Substance Alcohol Last use: 08/2014 Marijuana Last use: yesterday cocaine Last use: I think I accidently ingested it a year and a half ago Heroin Last use: never Meth Last use: 1 month ago LSD/PCP Last use: 2002 IV drugs Last use: never OTC/Rx drugs Pt denies location: [place], [place] Current home location: [place], [place] Who lives at home: Mother Siblings: Children: Siblings: 1 brother; children: None Relationships: Currently in a relationship (2-3 words) Describe childhood: It was good (physical/verbal/mental/sexual) Abuse/Trauma: I was told sexual abuse never happened but I do remember a data center operator telling me to do things Education: Some college Occupation/Job history: Currently unemployed; pt was on disability but reports that it is suspended since Aug 2023 Hobbies/Interests: Building things and fixing things Social Activities: Goes to [employer] and [employer] Spiritual Affiliation: Reports believing in God but does not go to scientology Probation/Legal trouble/: I don't know what I am on; I was told that I was going to see a computerized machine fabric cutter on the or the . * ROS: * PSYCH ROS2: Admits E levated mood symptoms. A dmits m ood swings. T houghts of self harm D enies. D enies H omicidal thoughts. H yperactivity? Denies. I nattention A dmits. B ehavior concerns D enies. D isruptive behavior Denies. O bsessive behavior D enies. C ompulsive behavior Denies. P aranoia A dmits. D ifficulty concentrating A dmits. s leeping more than usual Denies. A dmits A nxiety. D enies A uditory/visual hallucinations. D enies D elusions. D enies D epressed mood. D enies D ifficulty sleeping. D enies E ating disorder. D enies L oss of appetite. D enies S tressors. D enies S ubstance abuse. D enies S uicidal thoughts. * Medical History: * Surgical History: h ernia repair * Hospitalization/Major Diagno stic Procedure: D enies Past Hospitalization * Family History: F ather: unknown. M other: alive. 1 brother(s) - healthy. . Runs in family depression anxiety schizophrenia Brother: N arcissistic personality Mother: Chele. * Social History: P rimary Social History: L iving Arrangement L iving Arrangement: I ndependent Living, I s this a supportive environment? Y es. A lcohol Use A lcohol Use Frequency: N ever. I llicit Substance Usage I llicit Substance Usage: Y es, I nterested in quitting: N o, S ubstance Used: C annabis, F requency Cannabis is used: Not a daily use . E mployment Status E mployment Status: O n Disability. T obacco Use T obacco Use: Darío parada Reviewed with Patient, T obacco Use Status Reviewed on: 0 02/17/2024. T obacco Use: T obacco Control (Standard) T obacco use: C urrent smoker, H ow often do you smoke cigarettes? S ome days, but not every day, H ow many cigarettes a day do you smoke? 5 or less, H ow soon after you wake up do you smoke your first cigarette? A fter 60 minutes,?Are you interested in quitting? N ot ready to quit, A dditional Findings: Tobacco user?e-cigarette. M iscellaneous: M ethod of learning P referred method of learning: D emonstration. * Medications: N one * Allergies: S ulfa Antibioticsno[Allergies Verified] Objective: * Vitals: I nitials: krs, Wt:154.8, BP:122/78, HR:81, Oxygen sat %:98, Pain scale:0. * Examination: G eneral Examination: GENERAL APPEARANCE: c ooperative, Alert, well hydrated, in no distress, pleasant, in no acute distress, well-developed, well nourished, well hydrated, well nourished, male, fidgety, rocking back and forth at times, . PSYCH: g ood eye contact, speech clear, no auditory or visual hallucinations, thought content without suicidal ideation or delusions, alert, oriented x4, judgement and insight fair, fund of knowledge fair, thought content without delusions, denies any current thoughts/plans of suidicial/homicidal ideation. Assessment: * Assessment: 1. N icotine dependence, unspecified, uncomplicated - F17.200 2 . S chizoaffective disorder, bipolar type - F25.0 3 . A nxiety - F41.9 Plan: * Treatment: Value Reference Range T HC P * C OC N * M OP (OPI) N * A MP P * M ET P * B AR N * B ZO N * M DMA N * M TD N * O XY N * P CP N * B UP N Notes: Will restart Olanzapine at this time to aid paranoia, kendra type symptoms and labile moods. Pt reports that he has done well on medication in the past. Will order routine labs at next visit. Will repeat UDS at next visit. Will reviewe prior records obtain from [facility] when pt was seen [facility] in the past ??2.?Anxiety? Start Propranolol HCl Tablet, 10 MG, 1 tablet, Orally, two times a day, 30 days, 60 Tablet, Refills0.?LAB: 12 Panel Urine Drug Screen (Ordered for 02/17/2024) (Collection Date & Time - 02/17/2024)* Value Reference Range T HC P * C OC N * M OP (OPI) N * A MP P * M ET P * B AR N * B ZO N * M DMA N * M TD N * O XY N * P CP N * B UP N Notes: Will restart Propranolol 10mg BID at this time to aid anxiety. B/P is WNL today in office. Pt reports that he has done well on med in the past. Enocouraged pt to schedule therapy appt. Pt denies SI/HI at this time. ?? 3.?Others? Notes: Discussed treatment plan; patient is agreeable and accepting of treatment plan. Patient denies further questions or concerns at this time. Return to clinic 4 weeksObtain lab work at next visitEncouraged counseling Discussed sleep hygiene and caffeine intakeDiscussed [...] 24-hour crisis hotline ([facility]), [facility] or call 911 if new symptoms arise of existing symptoms worsen; the Patient/Guardian is aware that this would apply to symptoms such as: suicidal ideation, homicidal ideation, high riskbehaviors, manic symptoms, psychotic symptoms, physical symptoms, or any other symptoms that may bedangerous to self or others. ?? * Recommended Wellness and Pre vention Guidelines: * S tatus A deniset L ast Done N ext Due A ction Taken N ONCOMPLIANT A lcohol use screening - 0 02/17/2024 - N ONCOMPLIANT B viviana Mass Index - 0 02/17/2024 - N ONCOMPLIANT C holesterol screen (genl pop) - 0 02/17/2024 - N ONCOMPLIANT C olorectal cancer screening - 0 02/17/2024 - N ONCOMPLIANT D epression screening - 0 02/17/2024 - N ONCOMPLIANT H IV screening - 0 02/17/2024 - N ONCOMPLIANT S moking status - 0 02/17/2024 - * Procedure Codes: [id number] BEHAV CHNG SMOKING 3-10 MIN * Preventive Medicine: Counseling: S MOKING: P atient counselled on the dangers of tobacco use and urged to quit. . . * Follow Up: 4 Weeks (Reason: Medication management - can be telehealth appt.) * * Sign off status: Completed true * Provider: Kelley AGRAWAL, MSN, CUSTOMER ASSISTANCE ASSOCIATE-C, PMHNP- Date: 0 02/17/2024 Generated for Jesus potts/[place]/Jahairaitting on: 0 11/03/2024 05:56 PM CDT History and Physical Notes * HPI (History of Present Illness) Category Sub-Category Detail Notes Category Not es Interim History Emergency room visit No New/Follow-up Patient Consult Consent to treat Staff reviewed [facility] Consent to Treat document with the patient. The patient verbally acknowledged understanding of the document and verbally voluntarily consents to treatment at [facility]. Patient verbally authorizes [facility] to bill for these services.: . Depression Screening PHQ-9 Little inte rest or pleasure in doing things: More than half the days Feeling down, depressed, or hopeless: Mo re than half the days Trouble falling or staying a sleep, or sleeping too much: More than half the days Feeling tired or having little energy: S everal days Poor appetite or overeating: Not at all Feeling bad about yourself o r that you are a failure, or have let yourself or your family down: Several days Trouble concentrating on thi ngs, such as reading the newspaper or watching television: Not at all Moving or speaking so slowly that other people could have noticed; or the opposite, being so fidgety or restless that you have been moving around a lot more than usual: Not at all Thoughts that you would be b sapphire off or of hurting yourself in some way: Not at all Total Score: 8 Interpretation: Mild Depression Intervention Depression Screening Findings: P ositive Follow-Up for Depression: No Referral necessary, patient involved in behavioral health treatment . Constitutional Expectations of this visit- Why present now? Symptoms Present- 43-year-old male presents to clinic via zoom for initial psychiatric evaluation. Pt showed up to office late and new evaluation was started 30 minutes late. Patient reports I was a patient of [facility] in [place] and my provider quit and I have been trying to get a new appointment. I found out who was taking her place and I was told that [place] isn't taking patients right now. I haven't been taking medications in almost 2 years; I was taking Wellbutrin, Buspar, Mirtazapine, Propranolol and Olanzapine. I am wanting to get back on Propranolol and Olanzapine at this time. I was diagnosed with Schizoaffective Disorder, Bipolar disorder in 2009. I was at [facility] Behavioral health outpatient classes from [id number]. I use drink a lot but I haven't drank since 09/02/2015. I don't plan on ever drinking again. Pt reports My Mom is on a mission and wants me to go back on my meds; I had a wellness check called on my and I had to do a 72 hour stay at [facility] in April; the retail delivery driver was surprised that I was able to get on the ambulance just fine. Pt reports I get called a bully and an asshole; I tend to say things just the way I think and my Mom liked when I just sat there. Patient currently lives with my Mom. Patient reports I have anger and irritability because my Mom says that I say stuff but I don't; I am just wanting to restart my meds to keep my Mom happy; I got arrested for two counts of assault against my Mom. Pt reports I am paranoid because of my Mom; I did go back and take some of the leftover meds. I am not having hallucinations; I was on Risperidone in the past but it was making me tired. 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 PHQ-9 score is 8 today. SHALINI-7 score is 18 today. Mood Questionnaire is (+) INITIAL [facility]: 2009; was seeing [facility] because I thought I heard a radio Information provided by: Patient Triggers: when people don't believe me and tell me that I made something up; I tend to point out bullshit when I see it What helps/Coping mechanisms: Listen to music Goals: I was but not anymore Sleep: I will run nonstop and I will go 2-3 days without sleeping and all of a sudden I will eat food and sometimes not Appetite: Eats food on and off Depression: 5 out of 10 Hopeless/helpless: Yes Guilty/Worthless: no but some people make me feel guilty Interest level: I stick to what I like to do Concentration: Reports issues with concentration; reports that it is scattered at times Crying spells: Yes Energy Level: it is pretty good Weight loss/Weight gain: I stay around 155-160; I was 180 before Anxiety: 10 out of 10 I am always anxious Panic Attacks: Denies Social Phobias: I enjoy being around people and talking to people Nightmares/Flashbacks: Denies Anger/irritability: yes that comes with me being told that I am making crap up Racing thoughts: Yes Distractible: Yes Indiscretion/Inhibition: Yes I believe in the innate good Risk taking: Reports sleeping around and using drugs in the past Grandiosity: Denies Increased activity: Yes Missed sleep and still felt good: Yes Talkativeness: Yes Impulsivity: Denies Suicidal Ideation: Denies Suicidal attempts: Denies Self-Harm: Denies Homicidal Ideation: Denies Hallucinations: Reports hallucinations in the past; denies current Paranoia: Reports paranoia 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 OCD: Yes Animal cruelty or fire setting: Denies PAST PSYCHIATRIC HISTORY: Past Diagnosis: Schizoaffective Disorder, Bipolar ADHD/learning disabilities as child: Denies past diagnosis but believes that he thinks that he has ADHD because he has issues staying on track Psychiatric Medications: Current: Past: Past: Olanzapine, Propranolol, Wellbutrin, Buspar, Mirtazapine Current meds: None Substance use: occasional marijuana use; last meth use was 1 month ago Medication Adherence: Not taking any meds at this time Medication efficacy: N/A Side effects: N/A Past Psychiatric Hospitalizations/Counseling: Hospitalizations: 72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
--- OUTSIDE RECORDS SUMMARY | 2024-11-03 17:56 | XMS_ITS ---
Author Organization [facility] Address [address] [place] [address] Care Team Providers Care Prevention Coordinator Name Role Phone Tanja, Tami Unavailable [phone] REASON FOR VISIT Per fabienne Trejo appt.-1 Month Psych F/U & Med Refill Social History Sex Assigned At : Social History Observation Description Sex Assigned At Male Encounters Encounter Location Date Provider Diagnosis [address] [place] [address] 04/09/2024 Tami Agrawal Plan Of Treatment No Information Progress Notes * Donell REISDOB:1980 ([age] yo M)Acc No.[id number]:04/09/2024 UNLOCKED PROGRESS NOTE Patient: Donell Pérez ACE Provider: Kelley AGRAWAL MSN, TOWER CLEANER-C, PMHNP-BC :1980 A ge:43 Y S ex:Male Date:04/09/2024 [address] [id number] Subjective: * Chief Complaints: * 1 . Per fabienne Trejo appt.-1 Month Psych F/U & Med Refill. * Medical History: Objective: * Vitals: Assessment: Plan: * Treatment: * * Electronic signature of Reny Agrawal on 11/03/2024 at 05:56 PM CDT Sign off status: Pending * Provider: LINDY SOSA, TOWER CLEANER-C, PMHNP-BC Date: 0 04/09/2024 Generated for Jesus potts/Famarie/eTransmitting on: 0 11/03/2024 05:56 PM CDT
--- OUTSIDE RECORDS SUMMARY | 2024-11-03 17:56 | XMS_ITS | Clinical Summary ---
Author Organization [facility] Address [address] [place] [address] Care Team Providers Care Acoustical Tile Drill Press Operator Name Role Phone Stephenie Bernal MD Primary Care Provider [phone]- [phone] Source Comments [facility],non-owned Affiliates and Associated Physician Practices is amultiple site organization consisting of ambulatory clinics and hospital sitesin [place], [place], [place] and [place]. This disclosure is being madepursuant to the Care Everywhere program and may not contain all information available regarding this patient. Last updated 18.[facility] Allergies Active Allergy Reactions Criticality Noted Date [...] 01/17/2014 7:12 PM CDT Plan of Treatment Health Maintenance Due Date Last Done Comments COLOGUARD (AGES 45-75) - COL ON CA SCREENING 1978 COLON MONITORING 1978 COLONOSCOPY - COLON CA SCREENING 1978 CT COLONOGRAPHY - COLON CA SCREENING 1978 Colorectal Cancer Screening 1978 FIT - COLON CA SCREENING 1978 FLEX SIG - COLON CA SCREENING 1978 LIPID TESTING 1978 HIV SCREENING 1993 HEPATITIS C SCREENING 08/30/1996 DTAP/TDAP/TD VACCINES (1 - Tdap) 1997 HEPATITIS B VACCINE (1 of 3 - 19+ 3-dose series) 1997 PNEUMOCOCCAL VACCINE (1 of 2 - PCV) 1997 COVID-19 VACCINE (2023-2 5 season) 2024 INFLUENZA VACCINE (#1) 2024 ZOSTER VACCINE (1 of 2) 2028 HIB VACCINE Aged Out No longer eligi ble based on patient's age to complete this topic HPV VACCINE Aged Out No longer eligi ble based on patient's age to complete this topic MENINGOCOCCAL (Group B) VACC INE SHARED DECISION-MAKING Aged Out No longer eligibl e based on patient's age to complete this topic MENINGOCOCCAL GROUPS A/C/Y/W VACCINE Aged Out No longer eligible b ased on patient's age to complete this topic Advance Directives * FULL RESUSCITATION (Latest Code Status on File) Date Activated Date Inactivated Comments 07/03/2013 8:09 PM 07/04/2013 1:39 PM * FULL RESUSCITATION Date Activated Date Inactivated Comments 02/28/2013 6:49 PM 03/01/2013 3:26 PM Care Teams Acoustical Tile Drill Press Operator Relationship Specialty Start Date End Date Stephenie Bernal MD PCP - General Family Medicine 05/14/13
[2024-11-03 19:28] VITALS: BP 155/88; PULSE 52; RESP 16; O2SAT 97
[2024-11-03 20:06] LABS: Basophils Percent Auto 0.3 % (0.2-1.2); Eosinophils Absolute Auto 0.1 K/mm3 (0-0.3); Eosinophils Percent Auto 0.5 % (0-4.4); Hematocrit 42.6 % (42.0-52.0); Hemoglobin 14.2 g/dL (14.0-18.0); Immature Granulocyte Absolute 0.04 K/mm3 (0.00-0.031); Immature Granulocyte Percent A 0.3 % (0-0.5); Lymphocytes Absolute Auto 2.09 K/mm3 (0.9-3.2); Lymphocytes Percent Auto 16.1 % (18.3-44.2); Mean Corpuscular HGB Conc 33.3 g/dl (32-36); Mean Corpuscular Volume 86.9 fl (80-100); Mean Platelet Volume 8.8 fl (7.4-10.4); Monocytes Absolute Auto 0.8 K/mm3 (0.1-0.6); Neutrophils Absolute Auto 9.9 K/mm3 (1.3-6.7); Neutrophils Percent Auto 76.8 % (45.5-73.1); Platelet Count Result 461 k/mm3 (150-375); Red Cell Distribution Width 13.2 % (11.5-14.5)
[2024-11-03 20:15] LABS: Acetaminophen < 10 ug/mL (10-30); Ethanol < 10 mg/dL (<10); Salicylate < 1.0 mg/dL (2-20)
[2024-11-03 20:17] LABS: SARS-CoV-2 RNA PCR Negative (Negative)
--- OUTSIDE RECORDS SUMMARY | 2024-11-03 20:17 | XMS_ITS | Patient Health Summary ---
Author Organization [facility] Address [address] [place] [address] Care Team Providers Care Missile Mechanic Name Role Phone Stephenie Bernal MD Primary Care Provider +[phone] Note from [facility],non-owned Affiliates and Associated Physician Practices is amultiple site organization consisting of ambulatory clinics and hospital sitesin [place], [place], [place] and [place]. This disclosure is being madepursuant to the Care Everywhere program and may not contain all information available regarding this patient. Last updated 18.[facility] [employer] Allergies * Sulfa Drugs(Unknown) -Medium Criticality Medications [...] Yellow, Dark Yellow 01/17/2014 9:43 PM CDT [facility] Clarity UA Clear 01/17/2014 9:43 PM CDT [facility] Specific [place] UA 1.025 1.005 - 1.030 01/17/2014 9:43 PM T [facility] pH UA 7.0 5.0 - 8.0 pH 01/17/2014 9:43 PM CDT [facility] Protein UA Negative Negative 01/17/2014 9:43 PM CDT [facility] Blood UA Negative Negative 01/17/2014 9:43 PM CDT [facility] Leukocyte UA Negative Negative 01/17/2014 9:43 PM CDT [facility] Nitrite UA Negative Negative 01/17/2014 9:43 PM CDT [facility] Glucose UA Negative Negative 01/17/2014 9:43 PM T [facility] Ketone UA 1+(A) Negative 01/17/2014 9:43 PM T [facility] Bilirubin UA Negative Negative 01/17/2014 9:43 PM T [facility] Urobilinogen UA 1.0 0.1 - 1.0 EU/dL 01/17/2014 9:43 PM T [facility] Reflex Status Culture not indicated 01/17/2014 9:43 PM [facility] Urine URINE SPECIMEN OBTAINED BY CLEAN CATCH PROCEDURE / Unknown 01/17/2014 9:24 PM CDT 01/17/2014 9:29 PM CDT Ashely Hanson MD LAB - URINALYSIS ORD ERABLES [facility] [address] [address] * (ABNORMAL) CBC W AUTO DIFFERENTIAL (01/17/2014 8:07 PM CDT) Only the most recent of6 resultswithin the time period is included. WBC 15.8(H) 4.4 - 10.7 x10^9/L 01/17/2014 8:17 PM [facility] RBC 5.16 3.80 - 5.40 x10^12/L 01/17/2014 8:17 PM [facility] Hemoglobin 16.3 12.0 - 17.6 gm/dL 01/17/2014 8:17 PM [facility] Hematocrit 45.4 35.2 - 51.7 % 01/17/2014 8:17 PM [facility] MCV 88.0 80.7 - 98.3 fl 01/17/2014 8:17 PM [facility] MCH 31.6 26.7 - 34.0 pg 01/17/2014 8:17 PM [facility] MCHC 35.9 30.8 - 35.9 gm/dL 01/17/2014 8:17 PM [facility] Platelet Count 279 153 - 416 x10^9/L 01/17/2014 8:17 PM [facility] RDW-CV 14.0 12.1 - 14.9 % 01/17/2014 8:17 PM [facility] MPV 9.9 9.4 - 12.9 fl 01/17/2014 8:17 PM [facility] Neutrophils % 83.8(H) 44.0 - 73.0 % 01/17/2014 8:17 PM [facility] Lymphocytes % 9.6(L) 20.0 - 43.0 % 01/17/2014 8:17 PM [facility] Monocytes % 4.9(L) 5.0 - 13.0 % 01/17/2014 8:17 PM [facility] Eosinophils % 1.1 0.0 - 6.0 % 01/17/2014 8:17 PM [facility] Basophils % 0.3 0.0 - 2.0 % 01/17/2014 8:17 PM [facility] Immature Granulocytes 0.3 0 - 1 % 01/17/2014 8:17 PM [facility] Neutrophil Absolute 13.23(H) 2.01 - 7.14 x10^9/L 01/17/2014 8:17 PM CDT [facility] Lymphocytes Absolute 1.51 1.07 - 3.94 x10^9/L 01/17/2014 8:17 PM CDT [facility] Monocytes Absolute 0.78 0.26 - 1.07 x10^9/L 01/17/2014 8:17 PM CDT [facility] Eosinophils Absolute 0.17 0 - 0.47 x10^9/L 01/17/2014 8:17 PM CDT [facility] Basophils Absolute 0.04 0 - 0.08 x10^9/L 01/17/2014 8:17 PM CDT [facility] nRBC Auto 0 /100 WBC 01/17/2014 8:17 PM T [facility] Blood BLOOD SPECIMEN / Unknown 01/17/2014 8:07 PM CDT 01/17/2014 8:15 PM CDT Ashely Hanson MD LAB - HEMATOLOGY ORD ERABLES [facility] [address] [place] [address] * COMPREHENSIVE METABOLIC PANEL (01/17/2014 8:07 PM CDT) Only the most recent of4 resultswithin the time period is included. Glucose 98 74 - 106 mg/dL 01/17/2014 8:32 PM [facility] Sodium 137 136 - 145 mmol/L 01/17/2014 8:32 PM T [facility] Potassium 3.7 3.5 - 5.1 mmol/L 01/17/2014 8:32 PM [facility] Chloride 104 98 - 107 mmol/L 01/17/2014 8:32 PM T [facility] CO2 24 22 - 31 mmol/L 01/17/2014 8:32 PM CDT [facility] Calcium 9.1 8.5 - 10.1 mg/dL 01/17/2014 8:32 PM [facility] Anion Gap 9 5 - 15 mmol/L 01/17/2014 8:32 PM CDT [facility] BUN 10 7 - 21 mg/dL 01/17/2014 8:32 PM T [facility] Creatinine 0.81 0.50 - 1.30 mg/dL 01/17/2014 8:32 PM CDT [facility] eGFR by MDRD >60 >60 mL/min/1.7 3m2 01/17/2014 8:32 PM CDT [facility] eGFR by MDRD >60 >60 mL/min/1.7 3m2 01/17/2014 8:32 PM CDT [facility] Alkaline Phosphatase 68 38 - 126 U/L 01/17/2014 8:32 PM CDT [facility] ALT 28 12 - 78 U/L 01/17/2014 8:32 PM CDT [facility] AST 16 5 - 40 U/L 01/17/2014 8:32 PM CDT [facility] Protein Total 7.9 6.4 - 8.2 gm/dL 01/17/2014 8:32 PM CDT [facility] Albumin 4.5 3.4 - 5.0 gm/dL 01/17/2014 8:32 PM CDT [facility] Bilirubin Total 0.5 0.2 - 1.0 mg/dL 01/17/2014 8:32 PM CDT [facility] Blood BLOOD SPECIMEN / Unknown 01/17/2014 8:07 PM CDT 01/17/2014 8:15 PM CDT Ashely Hanson MD LAB - CHEMISTRY ORDBoo DÍAZ Performing Organization Address City/[facility]/ZIP Co de Phone Number [facility] [address] [place] [address] * LIPASE BLOOD (01/17/2014 8:07 PM CDT) Only the most recent of2 resultswithin the time period is included. Lipase 206 73 - 393 U/L 01/17/2014 8:32 PM CDT [facility] Blood BLOOD SPECIMEN / Unknown 01/17/2014 8:07 PM CDT 01/17/2014 8:15 PM CDT Ashely Hanson MD LAB - CHEMISTRY MALLORY DÍAZ [facility] [address] [address] * (ABNORMAL) BASIC METABOLIC PANEL (CALCIUM TOTAL) (07/04/2013 5:56 AM FACILITIES SUPERVISOR) Only the most recent of2 resultswithin the time period is included. Glucose 108(H) 74 - 106 mg/dL 07/04/2013 6:17 AM [facility] Sodium 136 136 - 145 mmol/L 07/04/2013 6:17 AM [facility] Potassium 3.5 3.5 - 5.1 mmol/L 07/04/2013 6:17 AM [facility] Chloride 100 98 - 107 mmol/L 07/04/2013 6:17 AM [facility] CO2 24 22 - 31 mmol/L 07/04/2013 6:17 AM [facility] Calcium 8.1(L) 8.5 - 10.1 mg/dL 07/04/2013 6:17 AM [facility] Anion Gap 12 5 - 15 mmol/L 07/04/2013 6:17 AM [facility] BUN 7 7 - 21 mg/dL 07/04/2013 6:17 AM [facility] Creatinine 0.76 0.50 - 1.30 mg/dL 07/04/2013 6:17 AM [facility] eGFR by MDRD >60 >60 mL/min/1.7 3m2 07/04/2013 6:17 AM [facility] eGFR by MDRD >60 >60 mL/min/1.7 3m2 07/04/2013 6:17 AM [facility] Blood BLOOD SPECIMEN / Unknown Lab Venipuncture / Unknown 07/04/2013 5:56 AM FACILITIES SUPERVISOR 07/04/2013 5:59 AM FACILITIES SUPERVISOR Fredrick Rosado MD LAB - CHEMISTRY MALLORY DÍAZ [facility] Organization Address City/State/ZIP Co de Phone Number [facility] [address] [place] [address] * C-REACTIVE PROTEIN (07/03/2013 4:57 PM FACILITIES SUPERVISOR) C-Reactive Protein <0.29 <0.30 mg/dL 07/03/2013 5:16 PM [facility] Blood BLOOD SPECIMEN / Unknown 07/03/2013 4:57 PM FACILITIES SUPERVISOR 07/03/2013 5:00 PM FACILITIES SUPERVISOR Earl Goodman MD LAB - DESKTOP MANAGER RY ORDERABLES Performing Organization Address [facility] Co de Phone Number [facility] [address] [place] [address] * (ABNORMAL) ALCOHOL ETHYL BLOOD (07/03/2013 4:57 PM FACILITIES SUPERVISOR) Only the most recent of2 resultswithin the time period is included. Ethanol 228(H) <10 mg/dL 07/03/2013 5:16 PM FACILITIES SUPERVISOR [facility] Ethanol Calculated 0.228(H) <0.100 gm/dL 07/03/2013 5:16 PM FACILITIES SUPERVISOR [facility] Blood BLOOD SPECIMEN / Unknown 07/03/2013 4:57 PM FACILITIES SUPERVISOR 07/03/2013 5:00 PM FACILITIES SUPERVISOR Narrative [facility] - 07/03/2013 5:16 PM FACILITIES SUPERVISOR Non Legal Serum Alcohol Earl Goodman MD LAB - DESKTOP MANAGER RY ORDERABLES Performing Organization Address [facility] Co de Phone Number [facility] [address] [place] [address] * CARDIAC RHYTHM STRIP ORDER (03/02/2013 2:24 PM CDT) Narrative 03/02/2013 2:24 PM CDT Procedure Note Document, Scanned - 03/02/2013 2:24 PM CDT Scanned Document CARDIAC SERVICES ORD ERABLES * (ABNORMAL) URINALYSIS ROUTINE AUTO (02/28/2013 12:41 PM CDT) Color UA Yellow Straw, Yellow, Dark Yellow 02/28/2013 12:55 PM CDT [facility] Clarity UA Clear 02/28/2013 12:55 PM CDT [facility] Specific [place] UA 1.010 1.005 - 1.030 02/28/2013 12:55 PM CDT [facility] pH UA 7.5 5.0 - 8.0 02/28/2013 12:55 PM CDT [facility] Protein UA Negative Negative 02/28/2013 12:55 PM CDT [facility] Blood UA Negative Negative 02/28/2013 12:55 PM CDT [facility] Leukocyte UA Negative Negative 02/28/2013 12:55 PM CDT [facility] Nitrite UA Negative Negative 02/28/2013 12:55 PM CDT [facility] Glucose UA Negative Negative 02/28/2013 12:55 PM CDT [facility] Ketone UA 2+(A) Negative 02/28/2013 12:55 PM CDT [facility] Bilirubin UA Negative Negative 02/28/2013 12:55 PM CDT [facility] Urobilinogen UA 1.0 0.1 - 1.0 EU/dL 02/28/2013 12:55 PM CDT [facility] Urine Microscopy Urine microscopy not indicated 02/28/2013 12:55 PM CDT [facility] Urine specimen (specimen) URINE SPECIMEN OBTAINED BY CLEAN CATCH PROCEDURE / Unknown Collection / Unknown 02/28/2013 12:41 PM CDT 02/28/2013 12:46 PM CDT Nani Tsang MD LAB - URINALYSIS ORD ERABLES Performing Organization Address City/State/[facility] Co de Phone Number [facility] [address] [place] [address] * (ABNORMAL) DRUG SCREEN TOX URINE PANEL (02/28/2013 12:41 PM CDT) [facility] Amphetamines Screen Urine Not Detected Not Detected 02/28/2013 12:58 PM CDT [facility] Barbiturates Screen Urine Not Detected Not Detected 02/28/2013 12:58 PM T [facility] Benzodiazepines Screen Urine Not Detected Not Detected 02/28/2013 12:58 PM [facility] Cannabinoids Screen Urine Detected(A) Not Detected 02/28/2013 12:58 PM CDT [facility] Cocaine Screen Urine Not Detected Not Detected 02/28/2013 12:58 PM T [facility] Methadone Screen Urine Not Detected Not Detected 02/28/2013 12:58 PM T [facility] Opiate Screen Urine Not Detected Not Detected 02/28/2013 12:58 PM T [facility] Phencyclidine Screen Urine Not Detected Not Detected 02/28/2013 12:58 PM T [facility] Urine specimen (specimen) URINE / Unknown Collection / Unknown 02/28/2013 12:41 PM CDT 02/28/2013 12:46 PM CDT Narrative [facility] - 02/28/2013 12:58 PM CDT [...] MD LAB - URINE CHEMISTR Y ORDERABLES [facility] [address] [place] [address] Care Teams Missile Mechanic Relationship Specialty Start Date End Date Stephenie Bernal MD PCP - General Family Medicine 05/14/13
--- OUTSIDE RECORDS SUMMARY | 2024-11-03 20:17 | XMS_ITS | Clinical Summary ---
Author Organization [facility] Address [address] [place] [address] Care Team Providers Care Dictaphone Operator Name Role Phone Stephenie Bernal MD Primary Care Provider +1- [phone] Source Comments [facility],non-owned Affiliates and Associated Physician Practices is amultiple site organization consisting of ambulatory clinics and hospital sitesin [place], [place], [place] and [place]. This disclosure is being madepursuant to the Care Everywhere program and may not contain all information available regarding this patient. Last updated 18.[facility] Allergies Active Allergy Reactions Criticality Noted Date [...] 6:49 PM 03/01/2013 3:26 PM Care Teams Dictaphone Operator Relationship Specialty Start Date End Date Stephenie Bernal MD PCP - General Family Medicine 05/14/13
--- OUTSIDE RECORDS SUMMARY | 2024-11-03 20:17 | XMS_ITS | Referral Summary ---
Author Organization [facility] Address [address] [place] [address] Care Team Providers Care Audio Production Engineer Name Role Phone Stephenie Bernal MD Primary Care Provider +1- [phone] [facility],non-owned Affiliates and Associated Physician Practices is amultiple site organization consisting of ambulatory clinics and hospital sitesin [place], [place], [place] and [place]. This disclosure is being madepursuant to the Care Everywhere program and may not contain all information available regarding this patient. Last updated 18.[facility] Allergies Active Allergy Reactions Criticality Noted Date [...] 6:49 PM 03/01/2013 3:26 PM Care Teams Audio Production Engineer Relationship Specialty Start Date End Date Stephenie Bernal MD PCP - General Family Medicine 05/14/13
[2024-11-03 20:27] LABS: Alanine Aminotransferase 23 U/L (6-50); Albumin Level 4.5 g/dL (3.5-5.1); Alkaline Phosphatase 71 U/L (38-126); Anion Gap 8 mmol/L (4-12); Aspartate Amino Transferase 26 U/L (17-59); Bilirubin,Total 0.6 mg/dL (0.2-1.3); Blood Urea Nitrogen 8 mg/dL (9-20); Calcium 9.7 mg/dL (8.4-10.2); Carbon Dioxide 27 mmol/L (22-30); Chloride 102 mmol/L (98-107); Estimated CRCL calculation 80 ml/min; Estimated Glomerular Filt Rate > 60; Glucose 117 mg/dL (65-110); Potassium 4.2 mmol/L (3.4-5.0); Sodium 137 mmol/L (137-145)
[2024-11-03 21:35] LABS: Add Urine Microscopic? NO; Appearance Urine Clear (Clear); Bilirubin Urine Negative (Negative); Blood Urine Negative (Negative); Color Urine Yellow (Yellow); Glucose Urine UA Negative (Negative); Ketones Urine Negative (Negative); Leukocyte Esterase Ur Negative LEU/UL (Negative); Nitrate Urine Negative (Negative); Protein Urine Negative (Negative); Specific Grav Ur 1.011 (1.001-1.035); Urobilinogen Urine 0.2 mg/dL (<2.0); pH Urine 6.5 (5.0-9.0)
--- NOTE | 2024-11-03 21:40 | PC.NURSE ---
Patient seen attempting to leave ED. Patient stopped by family, security and charge ED and still refused to stay. AMA paperwork signature not obtained. Provider notified.
[2024-11-03 21:50] LABS: Amphetamine Screen Urine Negative (Negative); Barbiturate Screen Urine Negative (Negative); Benzodiazepines Screen Urine Negative (Negative); Cannabinoid Screen Urine Positive (Negative); Cocaine Screen Urine Negative (Negative); Methadone Screen Urine Negative (Negative); Opiate Screen Urine Negative (Negative); Phencyclidine Screen Urine Negative (Negative)
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
== END 2024-11-03 21:40 | disposition left against medical advice (07) ==
PROVIDERS: Physician Assistant; Emergency Provider Student in an Organized Health Care Education/Training Program
DX: F25.9 Schizoaffective disorder, unspecified (principal); F31.9 Bipolar disorder, unspecified; F15.90 Other stimulant use, unspecified, uncomplicated; Z11.52 Encounter for screening for COVID-19
CPT/HCPCS: 36415; 80053; 80143; 80179; 80307; 81003; 82077; 84443; 85025; 87635; 99283

== ENCOUNTER 2024-11-04 18:14 | Emergency (ER) | payer OTHER, SELFPAY ==
--- NOTE | ~2024-11-04 | XR_ITS ---
XR humerus RT Ordering provider: Marleen Agudelo APRN History: . injury PATIENTS UPPER ARM IS BANDAGED . Comparison: None. FINDINGS: BONES: Small bony fragment is seen in the acromioclavicular joint which may be degenerative.. JOINT SPACES: Normal. SOFT TISSUES: Normal. IMPRESSION: No acute osseous abnormality right humerus. Reviewed, dictated and finalized at location A.
[2024-11-04 18:16] VITALS: BP 142/126; PULSE 114; RESP 16; TEMP 36.6; O2SAT 100
--- OUTSIDE RECORDS SUMMARY | 2024-11-04 18:16 | XMS_ITS | Referral Summary ---
Author Organization [facility] Address [address] [place] [address] Care Team Providers Care Mortgage Clerk Name Role Phone Stephenie Bernal MD Primary Care Provider [phone] Source Comments [facility],non-owned Affiliates and Associated Physician Practices is amultiple site organization consisting of ambulatory clinics and hospital sitesin [place], [place], [place] and [place]. This disclosure is being madepursuant to the Care Everywhere program and may not contain all information available regarding this patient. Last updated 18.[facility] Allergies Active Allergy Reactions Criticality Noted Date [...] CDT Plan of Treatment Not on file Insurance Payer Benefit Plan / Group Subscriber ID Effective Dates Phone Address Type MEDICAID - [place] MED[place] - [facility] [id number] Effective for all dates [address] [place] [address] Medicaid [place] Advance Directives * FULL RESUSCITATION (Latest Code Status on File) Date Activated Date Inactivated Comments 07/03/2013 8:09 PM 07/04/2013 1:39 PM * FULL RESUSCITATION Date Activated Date Inactivated Comments 02/28/2013 6:49 PM 03/01/2013 3:26 PM Care Teams Mortgage Clerk Relationship Specialty Start Date End Date Stephenie Bernal MD PCP - General Family Medicine 05/14/13
--- OUTSIDE RECORDS SUMMARY | 2024-11-04 18:16 | XMS_ITS | Clinical Summary ---
Author Organization [facility] Address [address] [place] [address] Care Team Providers Care Mixed Signal Design Engineer Name Role Phone Stephenie Bernal MD Primary Care Provider [phone]- [phone] Source Comments [facility],non-owned Affiliates and Associated Physician Practices is amultiple site organization consisting of ambulatory clinics and hospital sitesin [place], [place] and [place]. This disclosure is being madepursuant to the Care Everywhere program and may not contain all information available regarding this patient. Last updated 18.[facility] Allergies Active Allergy Reactions Criticality Noted Date [...] 6:49 PM 03/01/2013 3:26 PM Care Teams Mixed Signal Design Engineer Relationship Specialty Start Date End Date Stephenie Bernal MD PCP - General Family Medicine 05/14/13
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
--- OUTSIDE RECORDS SUMMARY | 2024-11-04 18:17 | XMS_ITS | Patient Health Record ---
Author Organization [facility] Address [address] [place] [address] Care Team Providers Care Electronic Health Records Specialist Name Role Phone Tami Agrawal Unavailable [phone] Allergies Allergen (clinical drug ingredient) Drug/Non Drug [...] W/U Status Risk Notes Problem Tobacco user (838389607) Nicotine dependence, unspecified, uncomplicated (F17.200) Active confirmed Problem Schizoaffective disorder, bipolar type (84522189) Schizoaffective disorder, bipolar type (F25.0) Active confirmed Problem Anxiety (99938623) Anxiety (F41.9) Active confi rmed Vital Signs Heart Rate 81 /min 02/17/2024 Blood pressure diastolic 78 mm Hg 02/17/2024 Oximetry 98 % 02/17/2024 Blood pressure systolic 122 mm Hg 02/17/2024 Weight 154.8 lbs 02/17/2024 Encounters Encounter Location Date Provider Diagnosis [address] [place] [address] 02/17/2024 Tami Agrawal Nicotine dependence, unspecified, uncomplicated [...] from [facility] when pt was seen at [facility] in the past 02/17/2024 Anxiety (ICD-10 - [...] Insured Coverage Start Date Coverage End Date [employer] [address] [place] [phone] [id number] Donell Berrios Self - patient is the insured 4 [employer] [address] [place] [address] [phone] [id number] Donell Berrios Self - patient is the insured 4 Medical (General) History Medical History History ICD Code schizophrenic bipolar hernia broken teeth HTN Surgical History Surgery Date(Month/Year) hernia repair Hospitalization History Reason Date(Month/Year)
--- OUTSIDE RECORDS SUMMARY | 2024-11-04 18:17 | XMS_ITS | Patient Health Summary ---
Author Organization [facility] Address [address] [place] [address] Care Team Providers Care Burlap Man Name Role Phone Stephenie Bernal MD Primary Care Provider [phone] Note from [facility],non-owned Affiliates and Associated Physician Practices is amultiple site organization consisting of ambulatory clinics and hospital sitesin [place], [place], [place] and [place]. This disclosure is being madepursuant to the Care Everywhere program and may not contain all information available regarding this patient. Last updated 18.[facility] [employer] Allergies * Sulfa Drugs(Unknown) -Medium Criticality Medications [...] Yellow, Dark Yellow 01/17/2014 9:43 PM CDT [facility] Clarity UA Clear 01/17/2014 9:43 PM CDT [facility] Specific Stone UA 1.025 1.005 - 1.030 01/17/2014 9:43 PM T [facility] pH UA 7.0 5.0 - 8.0 pH 01/17/2014 9:43 PM CDT [facility] Protein UA Negative Negative 01/17/2014 9:43 PM CDT [facility] Blood UA Negative Negative 01/17/2014 9:43 PM CDT [facility] Leukocyte UA Negative Negative 01/17/2014 9:43 PM CDT [facility] Nitrite UA Negative Negative 01/17/2014 9:43 PM CDT [facility] Glucose UA Negative Negative 01/17/2014 9:43 PM T [facility] Ketone UA 1+(A) Negative 01/17/2014 9:43 PM T [facility] Bilirubin UA Negative Negative 01/17/2014 9:43 PM T [facility] Urobilinogen UA 1.0 0.1 - 1.0 EU/dL 01/17/2014 9:43 PM T [facility] Reflex Status Culture not indicated 01/17/2014 9:43 PM [facility] Urine URINE SPECIMEN OBTAINED BY CLEAN CATCH PROCEDURE / Unknown 01/17/2014 9:24 PM CDT 01/17/2014 9:29 PM CDT Ashely Hanson MD LAB - URINALYSIS ORD ERABLES [facility] [address] [address] * (ABNORMAL) CBC W AUTO DIFFERENTIAL (01/17/2014 8:07 PM CDT) Only the most recent of6 resultswithin the time period is included. WBC 15.8(H) 4.4 - 10.7 x10^9/L 01/17/2014 8:17 PM [facility] RBC 5.16 3.80 - 5.40 x10^12/L 01/17/2014 8:17 PM [facility] Hemoglobin 16.3 12.0 - 17.6 gm/dL 01/17/2014 8:17 PM [facility] Hematocrit 45.4 35.2 - 51.7 % 01/17/2014 8:17 PM [facility] MCV 88.0 80.7 - 98.3 fl 01/17/2014 8:17 PM [facility] MCH 31.6 26.7 - 34.0 pg 01/17/2014 8:17 PM [facility] MCHC 35.9 30.8 - 35.9 gm/dL 01/17/2014 8:17 PM [facility] Platelet Count 279 153 - 416 x10^9/L 01/17/2014 8:17 PM [facility] RDW-CV 14.0 12.1 - 14.9 % 01/17/2014 8:17 PM [facility] MPV 9.9 9.4 - 12.9 fl 01/17/2014 8:17 PM [facility] Neutrophils % 83.8(H) 44.0 - 73.0 % 01/17/2014 8:17 PM [facility] Lymphocytes % 9.6(L) 20.0 - 43.0 % 01/17/2014 8:17 PM [facility] Monocytes % 4.9(L) 5.0 - 13.0 % 01/17/2014 8:17 PM [facility] Eosinophils % 1.1 0.0 - 6.0 % 01/17/2014 8:17 PM [facility] Basophils % 0.3 0.0 - 2.0 % 01/17/2014 8:17 PM [facility] Immature Granulocytes 0.3 0 - 1 % 01/17/2014 8:17 PM [facility] Neutrophil Absolute 13.23(H) 2.01 - 7.14 x10^9/L 01/17/2014 8:17 PM CDT [facility] Lymphocytes Absolute 1.51 1.07 - 3.94 x10^9/L 01/17/2014 8:17 PM CDT [facility] Monocytes Absolute 0.78 0.26 - 1.07 x10^9/L 01/17/2014 8:17 PM CDT [facility] Eosinophils Absolute 0.17 0 - 0.47 x10^9/L 01/17/2014 8:17 PM CDT [facility] Basophils Absolute 0.04 0 - 0.08 x10^9/L 01/17/2014 8:17 PM CDT [facility] nRBC Auto 0 /100 WBC 01/17/2014 8:17 PM T [facility] Blood BLOOD SPECIMEN / Unknown 01/17/2014 8:07 PM CDT 01/17/2014 8:15 PM CDT Ashely Hanson MD LAB - HEMATOLOGY ORD ERABLES [facility] [address] [place] [address] * COMPREHENSIVE METABOLIC PANEL (01/17/2014 8:07 PM CDT) Only the most recent of4 resultswithin the time period is included. Glucose 98 74 - 106 mg/dL 01/17/2014 8:32 PM [facility] Sodium 137 136 - 145 mmol/L 01/17/2014 8:32 PM T [facility] Potassium 3.7 3.5 - 5.1 mmol/L 01/17/2014 8:32 PM [facility] Chloride 104 98 - 107 mmol/L 01/17/2014 8:32 PM T [facility] CO2 24 22 - 31 mmol/L 01/17/2014 8:32 PM CDT [facility] Calcium 9.1 8.5 - 10.1 mg/dL 01/17/2014 8:32 PM [facility] Anion Gap 9 5 - 15 mmol/L 01/17/2014 8:32 PM CDT [facility] BUN 10 7 - 21 mg/dL 01/17/2014 8:32 PM T [facility] Creatinine 0.81 0.50 - 1.30 mg/dL 01/17/2014 8:32 PM CDT [facility] eGFR by MDRD >60 >60 mL/min/1.7 3m2 01/17/2014 8:32 PM CDT [facility] eGFR by MDRD >60 >60 mL/min/1.7 3m2 01/17/2014 8:32 PM CDT [facility] Alkaline Phosphatase 68 38 - 126 U/L 01/17/2014 8:32 PM CDT [facility] ALT 28 12 - 78 U/L 01/17/2014 8:32 PM CDT [facility] AST 16 5 - 40 U/L 01/17/2014 8:32 PM CDT [facility] Protein Total 7.9 6.4 - 8.2 gm/dL 01/17/2014 8:32 PM CDT [facility] Albumin 4.5 3.4 - 5.0 gm/dL 01/17/2014 8:32 PM CDT [facility] Bilirubin Total 0.5 0.2 - 1.0 mg/dL 01/17/2014 8:32 PM CDT [facility] Blood BLOOD SPECIMEN / Unknown 01/17/2014 8:07 PM CDT 01/17/2014 8:15 PM CDT Ashely Hanson MD LAB - CHEMISTRY ORDBoo DÍAZ Performing Organization Address City/[facility]/ZIP Co de Phone Number [facility] [address] [place] [address] * LIPASE BLOOD (01/17/2014 8:07 PM CDT) Only the most recent of2 resultswithin the time period is included. Lipase 206 73 - 393 U/L 01/17/2014 8:32 PM CDT [facility] Blood BLOOD SPECIMEN / Unknown 01/17/2014 8:07 PM CDT 01/17/2014 8:15 PM CDT Ashely Hanson MD LAB - CHEMISTRY MALLORY DÍAZ [facility] [address] [address] * (ABNORMAL) BASIC METABOLIC PANEL (CALCIUM TOTAL) (07/04/2013 5:56 AM SAW HANDLE ASSEMBLER) Only the most recent of2 resultswithin the time period is included. Glucose 108(H) 74 - 106 mg/dL 07/04/2013 6:17 AM [facility] Sodium 136 136 - 145 mmol/L 07/04/2013 6:17 AM [facility] Potassium 3.5 3.5 - 5.1 mmol/L 07/04/2013 6:17 AM [facility] Chloride 100 98 - 107 mmol/L 07/04/2013 6:17 AM [facility] CO2 24 22 - 31 mmol/L 07/04/2013 6:17 AM [facility] Calcium 8.1(L) 8.5 - 10.1 mg/dL 07/04/2013 6:17 AM [facility] Anion Gap 12 5 - 15 mmol/L 07/04/2013 6:17 AM [facility] BUN 7 7 - 21 mg/dL 07/04/2013 6:17 AM [facility] Creatinine 0.76 0.50 - 1.30 mg/dL 07/04/2013 6:17 AM [facility] eGFR by MDRD >60 >60 mL/min/1.7 3m2 07/04/2013 6:17 AM [facility] eGFR by MDRD >60 >60 mL/min/1.7 3m2 07/04/2013 6:17 AM [facility] Blood BLOOD SPECIMEN / Unknown Lab Venipuncture / Unknown 07/04/2013 5:56 AM SAW HANDLE ASSEMBLER 07/04/2013 5:59 AM SAW HANDLE ASSEMBLER Fredrick Rosado MD LAB - CHEMISTRY MALLORY DÍAZ [facility] Organization Address City/State/ZIP Co de Phone Number [facility] [address] [place] [address] * C-REACTIVE PROTEIN (07/03/2013 4:57 PM SAW HANDLE ASSEMBLER) C-Reactive Protein <0.29 <0.30 mg/dL 07/03/2013 5:16 PM [facility] Blood BLOOD SPECIMEN / Unknown 07/03/2013 4:57 PM SAW HANDLE ASSEMBLER 07/03/2013 5:00 PM SAW HANDLE ASSEMBLER Earl Goodman MD LAB - ESCROW MANAGER RY ORDERABLES Performing Organization Address [facility] Co de Phone Number [facility] [address] [place] [address] * (ABNORMAL) ALCOHOL ETHYL BLOOD (07/03/2013 4:57 PM SAW HANDLE ASSEMBLER) Only the most recent of2 resultswithin the time period is included. Ethanol 228(H) <10 mg/dL 07/03/2013 5:16 PM SAW HANDLE ASSEMBLER [facility] Ethanol Calculated 0.228(H) <0.100 gm/dL 07/03/2013 5:16 PM SAW HANDLE ASSEMBLER [facility] Blood BLOOD SPECIMEN / Unknown 07/03/2013 4:57 PM SAW HANDLE ASSEMBLER 07/03/2013 5:00 PM SAW HANDLE ASSEMBLER Narrative [facility] - 07/03/2013 5:16 PM SAW HANDLE ASSEMBLER Non Legal Serum Alcohol Earl Goodman MD LAB - ESCROW MANAGER RY ORDERABLES Performing Organization Address [facility] Co de Phone Number [facility] [address] [place] [address] * CARDIAC RHYTHM STRIP ORDER (03/02/2013 2:24 PM CDT) Narrative 03/02/2013 2:24 PM CDT Procedure Note Document, Scanned - 03/02/2013 2:24 PM CDT Scanned Document CARDIAC SERVICES ORD ERABLES * (ABNORMAL) URINALYSIS ROUTINE AUTO (02/28/2013 12:41 PM CDT) Color UA Yellow Straw, Yellow, Dark Yellow 02/28/2013 12:55 PM CDT [facility] Clarity UA Clear 02/28/2013 12:55 PM CDT [facility] Specific Stone UA 1.010 1.005 - 1.030 02/28/2013 12:55 PM CDT [facility] pH UA 7.5 5.0 - 8.0 02/28/2013 12:55 PM CDT [facility] Protein UA Negative Negative 02/28/2013 12:55 PM CDT [facility] Blood UA Negative Negative 02/28/2013 12:55 PM CDT [facility] Leukocyte UA Negative Negative 02/28/2013 12:55 PM CDT [facility] Nitrite UA Negative Negative 02/28/2013 12:55 PM CDT [facility] Glucose UA Negative Negative 02/28/2013 12:55 PM CDT [facility] Ketone UA 2+(A) Negative 02/28/2013 12:55 PM CDT [facility] Bilirubin UA Negative Negative 02/28/2013 12:55 PM CDT [facility] Urobilinogen UA 1.0 0.1 - 1.0 EU/dL 02/28/2013 12:55 PM CDT [facility] Urine Microscopy Urine microscopy not indicated 02/28/2013 12:55 PM CDT [facility] Urine specimen (specimen) URINE SPECIMEN OBTAINED BY CLEAN CATCH PROCEDURE / Unknown Collection / Unknown 02/28/2013 12:41 PM CDT 02/28/2013 12:46 PM CDT Nani Tsang MD LAB - URINALYSIS ORD ERABLES Performing Organization Address City/State/[facility] Co de Phone Number [facility] [address] [place] [address] * (ABNORMAL) DRUG SCREEN TOX URINE PANEL (02/28/2013 12:41 PM CDT) [facility] Amphetamines Screen Urine Not Detected Not Detected 02/28/2013 12:58 PM CDT [facility] Barbiturates Screen Urine Not Detected Not Detected 02/28/2013 12:58 PM T [facility] Benzodiazepines Screen Urine Not Detected Not Detected 02/28/2013 12:58 PM [facility] Cannabinoids Screen Urine Detected(A) Not Detected 02/28/2013 12:58 PM CDT [facility] Cocaine Screen Urine Not Detected Not Detected 02/28/2013 12:58 PM T [facility] Methadone Screen Urine Not Detected Not Detected 02/28/2013 12:58 PM T [facility] Opiate Screen Urine Not Detected Not Detected 02/28/2013 12:58 PM T [facility] Phencyclidine Screen Urine Not Detected Not Detected 02/28/2013 12:58 PM T [facility] Urine specimen (specimen) URINE / Unknown Collection / Unknown 02/28/2013 12:41 PM CDT 02/28/2013 12:46 PM CDT Narrative [facility] - 02/28/2013 12:58 PM CDT [...] MD LAB - URINE CHEMISTR Y ORDERABLES [facility] [address] [place] [address] Care Teams Burlap Man Relationship Specialty Start Date End Date Stephenie Bernal MD PCP - General Family Medicine 05/14/13
--- OUTSIDE RECORDS SUMMARY | 2024-11-04 18:17 | XMS_ITS ---
Author Organization [facility] Address [address] [place] [address] Care Team Providers Care Clinic Director Name Role Phone TanjaMorgan johnsonae Unavailable [phone] REASON FOR VISIT Per fabienne Trejo appt.-1 Month Psych F/U & Med Refill Social History Sex Assigned At : Social History Observation Description Sex Assigned At Male Encounters Encounter Location Date Provider Diagnosis [address] [place] [address] 04/09/2024 Tami Agrawal Plan Of Treatment No Information Progress Notes * Donell REISDOB:1980 ([age] yo M)Acc No.[id number]:04/09/2024 UNLOCKED PROGRESS NOTE Patient: Donell Pérez ACE Provider: Kelley AGRAWAL MSN, IT DISASTER RECOVERY MANAGER-C, PMHNP-BC :1980 A ge:43 Y S ex:Male Date:04/09/2024 [address] [facility] Subjective: * Chief Complaints: * 1 . Per fabienne Trejo appt.-1 Month Psych F/U & Med Refill. * Medical History: Objective: * Vitals: Assessment: Plan: * Treatment: * * Electronic signature of Reny Agrawal on 11/04/2024 at 06:16 PM CDT Sign off status: Pending * Provider: LINDY SOSA, IT DISASTER RECOVERY MANAGER-C, PMHNP-BC Date: 0 04/09/2024 Generated for Jesus potts/Famartinag/eTransmitting on: 0 11/04/2024 06:16 PM CDT
--- OUTSIDE RECORDS SUMMARY | 2024-11-04 18:43 | XMS_ITS | Clinical Summary ---
Author Organization [facility] Address [address] [facility] [place] [address] Care Team Providers Care Outdoor Guide Name Role Phone Stephenie Bernal MD Primary Care Provider [phone] Source Comments [facility],non-owned Affiliates and Associated Physician Practices is amultiple site organization consisting of ambulatory clinics and hospital sitesin [place], [place], [place] and [place]. This disclosure is being madepursuant to the Care Everywhere program and may not contain all information available regarding this patient. Last updated 18.[facility] Allergies Active Allergy Reactions Criticality Noted Date [...] 6:49 PM 03/01/2013 3:26 PM Care Teams Outdoor Guide Relationship Specialty Start Date End Date Stephenie Bernal MD PCP - General Family Medicine 05/14/13
--- OUTSIDE RECORDS SUMMARY | 2024-11-04 18:43 | XMS_ITS | Referral Summary ---
Author Organization [facility] Address [address] [place] [address] Care Team Providers Care Cisco Administrator Name Role Phone Stephenie Bernal MD Primary Care Provider [phone]- [phone] Source Comments [facility],non-owned Affiliates and Associated Physician Practices is amultiple site organization consisting of ambulatory clinics and hospital sitesin [place], [place], [place] and [place]. This disclosure is being madepursuant to the Care Everywhere program and may not contain all information available regarding this patient. Last updated 18.[facility] Allergies Active Allergy Reactions Criticality Noted Date [...] 6:49 PM 03/01/2013 3:26 PM Care Teams Cisco Administrator Relationship Specialty Start Date End Date Stephenie Bernal MD PCP - General Family Medicine 05/14/13
--- OUTSIDE RECORDS SUMMARY | 2024-11-04 18:43 | XMS_ITS | Patient Health Summary ---
Author Organization [facility] Address [address] [place] [address] Care Team Providers Care Soda Drier Feeder Name Role Phone Stephenie Bernal MD Primary Care Provider [phone] Note from [facility],non-owned Affiliates and Associated Physician Practices is amultiple site organization consisting of ambulatory clinics and hospital sitesin [place], [place], [place] and [place]. This disclosure is being madepursuant to the Care Everywhere program and may not contain all information available regarding this patient. Last updated 18.[facility] [employer] Allergies * Sulfa Drugs(Unknown) -Medium Criticality Medications [...] Yellow, Dark Yellow 01/17/2014 9:43 PM CDT [facility] Clarity UA Clear 01/17/2014 9:43 PM CDT [facility] Specific [place] UA 1.025 1.005 - 1.030 01/17/2014 9:43 PM T [facility] pH UA 7.0 5.0 - 8.0 pH 01/17/2014 9:43 PM CDT [facility] Protein UA Negative Negative 01/17/2014 9:43 PM CDT [facility] Blood UA Negative Negative 01/17/2014 9:43 PM CDT [facility] Leukocyte UA Negative Negative 01/17/2014 9:43 PM CDT [facility] Nitrite UA Negative Negative 01/17/2014 9:43 PM CDT [facility] Glucose UA Negative Negative 01/17/2014 9:43 PM T [facility] Ketone UA 1+(A) Negative 01/17/2014 9:43 PM T [facility] Bilirubin UA Negative Negative 01/17/2014 9:43 PM T [facility] Urobilinogen UA 1.0 0.1 - 1.0 EU/dL 01/17/2014 9:43 PM T [facility] Reflex Status Culture not indicated 01/17/2014 9:43 PM [facility] Urine URINE SPECIMEN OBTAINED BY CLEAN CATCH PROCEDURE / Unknown 01/17/2014 9:24 PM CDT 01/17/2014 9:29 PM CDT Ashely Hanson MD LAB - URINALYSIS ORD ERABLES [facility] [address] [address] * (ABNORMAL) CBC W AUTO DIFFERENTIAL (01/17/2014 8:07 PM CDT) Only the most recent of6 resultswithin the time period is included. WBC 15.8(H) 4.4 - 10.7 x10^9/L 01/17/2014 8:17 PM [facility] RBC 5.16 3.80 - 5.40 x10^12/L 01/17/2014 8:17 PM [facility] Hemoglobin 16.3 12.0 - 17.6 gm/dL 01/17/2014 8:17 PM [facility] Hematocrit 45.4 35.2 - 51.7 % 01/17/2014 8:17 PM [facility] MCV 88.0 80.7 - 98.3 fl 01/17/2014 8:17 PM [facility] MCH 31.6 26.7 - 34.0 pg 01/17/2014 8:17 PM [facility] MCHC 35.9 30.8 - 35.9 gm/dL 01/17/2014 8:17 PM [facility] Platelet Count 279 153 - 416 x10^9/L 01/17/2014 8:17 PM [facility] RDW-CV 14.0 12.1 - 14.9 % 01/17/2014 8:17 PM [facility] MPV 9.9 9.4 - 12.9 fl 01/17/2014 8:17 PM [facility] Neutrophils % 83.8(H) 44.0 - 73.0 % 01/17/2014 8:17 PM [facility] Lymphocytes % 9.6(L) 20.0 - 43.0 % 01/17/2014 8:17 PM [facility] Monocytes % 4.9(L) 5.0 - 13.0 % 01/17/2014 8:17 PM [facility] Eosinophils % 1.1 0.0 - 6.0 % 01/17/2014 8:17 PM [facility] Basophils % 0.3 0.0 - 2.0 % 01/17/2014 8:17 PM [facility] Immature Granulocytes 0.3 0 - 1 % 01/17/2014 8:17 PM [facility] Neutrophil Absolute 13.23(H) 2.01 - 7.14 x10^9/L 01/17/2014 8:17 PM CDT [facility] Lymphocytes Absolute 1.51 1.07 - 3.94 x10^9/L 01/17/2014 8:17 PM CDT [facility] Monocytes Absolute 0.78 0.26 - 1.07 x10^9/L 01/17/2014 8:17 PM CDT [facility] Eosinophils Absolute 0.17 0 - 0.47 x10^9/L 01/17/2014 8:17 PM CDT [facility] Basophils Absolute 0.04 0 - 0.08 x10^9/L 01/17/2014 8:17 PM CDT [facility] nRBC Auto 0 /100 WBC 01/17/2014 8:17 PM T [facility] Blood BLOOD SPECIMEN / Unknown 01/17/2014 8:07 PM CDT 01/17/2014 8:15 PM CDT Ashely Hanson MD LAB - HEMATOLOGY ORD ERABLES [facility] [address] [place] [address] * COMPREHENSIVE METABOLIC PANEL (01/17/2014 8:07 PM CDT) Only the most recent of4 resultswithin the time period is included. Glucose 98 74 - 106 mg/dL 01/17/2014 8:32 PM [facility] Sodium 137 136 - 145 mmol/L 01/17/2014 8:32 PM T [facility] Potassium 3.7 3.5 - 5.1 mmol/L 01/17/2014 8:32 PM [facility] Chloride 104 98 - 107 mmol/L 01/17/2014 8:32 PM T [facility] CO2 24 22 - 31 mmol/L 01/17/2014 8:32 PM CDT [facility] Calcium 9.1 8.5 - 10.1 mg/dL 01/17/2014 8:32 PM [facility] Anion Gap 9 5 - 15 mmol/L 01/17/2014 8:32 PM CDT [facility] BUN 10 7 - 21 mg/dL 01/17/2014 8:32 PM T [facility] Creatinine 0.81 0.50 - 1.30 mg/dL 01/17/2014 8:32 PM CDT [facility] eGFR by MDRD >60 >60 mL/min/1.7 3m2 01/17/2014 8:32 PM CDT [facility] eGFR by MDRD >60 >60 mL/min/1.7 3m2 01/17/2014 8:32 PM CDT [facility] Alkaline Phosphatase 68 38 - 126 U/L 01/17/2014 8:32 PM CDT [facility] ALT 28 12 - 78 U/L 01/17/2014 8:32 PM CDT [facility] AST 16 5 - 40 U/L 01/17/2014 8:32 PM CDT [facility] Protein Total 7.9 6.4 - 8.2 gm/dL 01/17/2014 8:32 PM CDT [facility] Albumin 4.5 3.4 - 5.0 gm/dL 01/17/2014 8:32 PM CDT [facility] Bilirubin Total 0.5 0.2 - 1.0 mg/dL 01/17/2014 8:32 PM CDT [facility] Blood BLOOD SPECIMEN / Unknown 01/17/2014 8:07 PM CDT 01/17/2014 8:15 PM CDT Ashely Hanson MD LAB - CHEMISTRY ORDBoo DÍAZ Performing Organization Address City/[facility]/ZIP Co de Phone Number [facility] [address] [place] [address] * LIPASE BLOOD (01/17/2014 8:07 PM CDT) Only the most recent of2 resultswithin the time period is included. Lipase 206 73 - 393 U/L 01/17/2014 8:32 PM CDT [facility] Blood BLOOD SPECIMEN / Unknown 01/17/2014 8:07 PM CDT 01/17/2014 8:15 PM CDT Ashely Hanson MD LAB - CHEMISTRY MALLORY DÍAZ [facility] [address] [address] * (ABNORMAL) BASIC METABOLIC PANEL (CALCIUM TOTAL) (07/04/2013 5:56 AM AQUARIST) Only the most recent of2 resultswithin the time period is included. Glucose 108(H) 74 - 106 mg/dL 07/04/2013 6:17 AM [facility] Sodium 136 136 - 145 mmol/L 07/04/2013 6:17 AM [facility] Potassium 3.5 3.5 - 5.1 mmol/L 07/04/2013 6:17 AM [facility] Chloride 100 98 - 107 mmol/L 07/04/2013 6:17 AM [facility] CO2 24 22 - 31 mmol/L 07/04/2013 6:17 AM [facility] Calcium 8.1(L) 8.5 - 10.1 mg/dL 07/04/2013 6:17 AM [facility] Anion Gap 12 5 - 15 mmol/L 07/04/2013 6:17 AM [facility] BUN 7 7 - 21 mg/dL 07/04/2013 6:17 AM [facility] Creatinine 0.76 0.50 - 1.30 mg/dL 07/04/2013 6:17 AM [facility] eGFR by MDRD >60 >60 mL/min/1.7 3m2 07/04/2013 6:17 AM [facility] eGFR by MDRD >60 >60 mL/min/1.7 3m2 07/04/2013 6:17 AM [facility] Blood BLOOD SPECIMEN / Unknown Lab Venipuncture / Unknown 07/04/2013 5:56 AM AQUARIST 07/04/2013 5:59 AM AQUARIST Fredrick Rosado MD LAB - CHEMISTRY MALLORY DÍAZ [facility] Organization Address City/State/ZIP Co de Phone Number [facility] [address] [place] [address] * C-REACTIVE PROTEIN (07/03/2013 4:57 PM AQUARIST) C-Reactive Protein <0.29 <0.30 mg/dL 07/03/2013 5:16 PM [facility] Blood BLOOD SPECIMEN / Unknown 07/03/2013 4:57 PM AQUARIST 07/03/2013 5:00 PM AQUARIST Earl Goodman MD LAB - CASSANDRA DEVELOPER RY ORDERABLES Performing Organization Address [facility] Co de Phone Number [facility] [address] [place] [address] * (ABNORMAL) ALCOHOL ETHYL BLOOD (07/03/2013 4:57 PM AQUARIST) Only the most recent of2 resultswithin the time period is included. Ethanol 228(H) <10 mg/dL 07/03/2013 5:16 PM AQUARIST [facility] Ethanol Calculated 0.228(H) <0.100 gm/dL 07/03/2013 5:16 PM AQUARIST [facility] Blood BLOOD SPECIMEN / Unknown 07/03/2013 4:57 PM AQUARIST 07/03/2013 5:00 PM AQUARIST Narrative [facility] - 07/03/2013 5:16 PM AQUARIST Non Legal Serum Alcohol Earl Goodman MD LAB - CASSANDRA DEVELOPER RY ORDERABLES Performing Organization Address [facility] Co de Phone Number [facility] [address] [place] [address] * CARDIAC RHYTHM STRIP ORDER (03/02/2013 2:24 PM CDT) Narrative 03/02/2013 2:24 PM CDT Procedure Note Document, Scanned - 03/02/2013 2:24 PM CDT Scanned Document CARDIAC SERVICES ORD ERABLES * (ABNORMAL) URINALYSIS ROUTINE AUTO (02/28/2013 12:41 PM CDT) Color UA Yellow Straw, Yellow, Dark Yellow 02/28/2013 12:55 PM CDT [facility] Clarity UA Clear 02/28/2013 12:55 PM CDT [facility] Specific [place] UA 1.010 1.005 - 1.030 02/28/2013 12:55 PM CDT [facility] pH UA 7.5 5.0 - 8.0 02/28/2013 12:55 PM CDT [facility] Protein UA Negative Negative 02/28/2013 12:55 PM CDT [facility] Blood UA Negative Negative 02/28/2013 12:55 PM CDT [facility] Leukocyte UA Negative Negative 02/28/2013 12:55 PM CDT [facility] Nitrite UA Negative Negative 02/28/2013 12:55 PM CDT [facility] Glucose UA Negative Negative 02/28/2013 12:55 PM CDT [facility] Ketone UA 2+(A) Negative 02/28/2013 12:55 PM CDT [facility] Bilirubin UA Negative Negative 02/28/2013 12:55 PM CDT [facility] Urobilinogen UA 1.0 0.1 - 1.0 EU/dL 02/28/2013 12:55 PM CDT [facility] Urine Microscopy Urine microscopy not indicated 02/28/2013 12:55 PM CDT [facility] Urine specimen (specimen) URINE SPECIMEN OBTAINED BY CLEAN CATCH PROCEDURE / Unknown Collection / Unknown 02/28/2013 12:41 PM CDT 02/28/2013 12:46 PM CDT Nani Tsang MD LAB - URINALYSIS ORD ERABLES Performing Organization Address City/State/[facility] Co de Phone Number [facility] [address] [place] [address] * (ABNORMAL) DRUG SCREEN TOX URINE PANEL (02/28/2013 12:41 PM CDT) [facility] Amphetamines Screen Urine Not Detected Not Detected 02/28/2013 12:58 PM CDT [facility] Barbiturates Screen Urine Not Detected Not Detected 02/28/2013 12:58 PM T [facility] Benzodiazepines Screen Urine Not Detected Not Detected 02/28/2013 12:58 PM [facility] Cannabinoids Screen Urine Detected(A) Not Detected 02/28/2013 12:58 PM CDT [facility] Cocaine Screen Urine Not Detected Not Detected 02/28/2013 12:58 PM T [facility] Methadone Screen Urine Not Detected Not Detected 02/28/2013 12:58 PM T [facility] Opiate Screen Urine Not Detected Not Detected 02/28/2013 12:58 PM T [facility] Phencyclidine Screen Urine Not Detected Not Detected 02/28/2013 12:58 PM T [facility] Urine specimen (specimen) URINE / Unknown Collection / Unknown 02/28/2013 12:41 PM CDT 02/28/2013 12:46 PM CDT Narrative [facility] - 02/28/2013 12:58 PM CDT [...] MD LAB - URINE CHEMISTR Y ORDERABLES [facility] [address] [place] [address] Care Teams Soda Drier Feeder Relationship Specialty Start Date End Date Stephenie Bernal MD PCP - General Family Medicine 05/14/13
--- NOTE | 2024-11-04 18:45 | ED.WOUNDLAC ---
HPI - Wound/Laceration General Chief Complaint: Psychiatric Symptoms Stated Complaint: I freaked out and ran Hallucinations Time Seen by Provider: 11/04/24 18:27 History of Present Illness HPI narrative: Patient is a 44-year-old male who presents to the ER after punching a hole through a car window. He was at this ER yesterday because he was ?hearing voices. Patient left the ER night, but today he continues to hear voices. Approximately 20 minutes prior to arrival patient reports he was in his car and thought someone has lost him and so he punched a hole through 1 of the car windows. Patient presents to the ER with a 6-7 inch long laceration to his right triceps. He also endorses that he is continuing to hear voices, sometimes they are the president or an [place] person or assassins. Patient's significant other reports that he was taking medication to treat schizoaffective bipolar disorder up until a year ago, but then was unable to get his medications refilled so he stopped taking them. He reports he has been self medicating with Fentanyl since then. Patient endorses pain in his right upper arm, but reports ?I do not want people to think I'm drug-seeking. He denies SI or HI at the time of examination. Related Data Allergies Allergy/AdvReac Type Severity Reaction Status Date / Time benztropine Allergy Unknown Unknown Verified 01/04/17 08:46 quetiapine Allergy Unknown Nervousness Verified 01/04/17 08:45 Sulfa (Sulfonamide Allergy Unknown Verified 08/29/17 21:20 Antibiotics) Review of Systems Review of Systems: All systems reviewed & are unremarkable except as noted in HPI and below PMFSH Social History Social History Substance use type: methamphetamine Exam Narrative: GENERAL: Well appearing, well-nourished, non-toxic, in no acute distress. HEAD: Normocephalic, atraumatic. NECK: Supple. No adenopathy, no masses. RESPIRATORY: Airway patent, respirations nonlabored. Clear to auscultation bilaterally, no rales, rhonchi, wheezing. CARDIOVASCULAR: Regular rate and rhythm without murmurs, rubs, or gallops. Peripheral pulses 2+ and equal bilaterally. ABDOMINAL: Soft, nontender, nondistended, no hepatosplenomegaly. Normoactive BS. MUSCULOSKELETAL: Moves all extremities. Strength/ROM intact. SKIN: Warm, dry, normal color. No rashes. R upper arm laceration, approximately 6-7 inches long, visible muscle striation of triceps, pt still able to extend and contract his triceps. Pulses strong in R brachial artery. He has full range of motion. NEURO: A&O X3. Speech clear. Cranial nerves II-XII grossly intact. Steady gait. No ataxic movements. PSYCHIATRIC: Appropriate mood and affect. Course Vital Signs Vital signs: Vital Signs Temperature 36.6 C 11/04/24 18:16 Pulse Rate 114 H 11/04/24 18:16 Respiratory Rate 16 11/04/24 18:16 Blood Pressure 142/126 H 11/04/24 18:16 Pulse Oximetry 100 11/04/24 18:16 Temperature 36.6 C 11/04/24 20:23 Pulse Rate 66 11/04/24 20:23 Respiratory Rate 18 11/04/24 20:23 Blood Pressure 152/93 H 11/04/24 20:23 Pulse Oximetry 99 11/04/24 20:23 MDM - Wound/Laceration MDM Narrative Medical decision making narrative: Patient is a 44-year-old male who presents to the ER after punching a hole through a car window. He was at this ER yesterday because he was ?hearing voices. Patient left the ER night, but today he continues to hear voices. Approximately 20 minutes prior to arrival patient reports he was in his car and thought someone has lost him and so he punched a hole through 1 of the car windows. Patient presents to the ER with a 6-7 inch long laceration to his right triceps. He also endorses that he is continuing to hear voices, sometimes they are the president or an [place] person or assassins. Patient's significant other reports that he was taking medication to treat schizoaffective bipolar disorder up until a year ago, but then was unable to get his medications refilled so he stopped taking them. He reports he has been self medicating with Fentanyl since then. Patient endorses pain in his right upper arm, but reports ?I do not want people to think I'm drug-seeking. He denies SI or HI at the time of examination. Labs Ordered: CBC, CMP Imaging Ordered: Right humerus x-ray Medications Ordered: Tdap Results: Patient's right humerus x-ray indicates No acute osseous abnormality right humerus. Diagnosis: Right triceps laceration Consults: [facility]- ER physician Patient Education/Shared MDM: Results shared with patient. He is in agreement for plan to transfer to a trauma hospital. 1909- Spoke with [facility] who is in agreement to accept pt as a trauma. 1999-Shared plan with patient and his significant other who are in agreement with plan. He will be transferred down to [facility] ER via EMS. Patient was transported to [facility] ER via BLS ambulance. He was A&O x4 times transport. Vital signs were stable. Differential Diagnosis Differential diagnosis: Likely laceration, abrasion and avulsion of skin Lab Data Attestation: I reviewed the patient's lab results. 11/04/24 19:17 11/04/24 19:17 Labs: Lab Results 11/04/24 Range/Units 19:17 WBC 11.5 H (4.5-10.0) K/mm3 RBC 5.10 (4.6-6.20) M/mm3 Hgb 14.8 (14.0-18.0) g/dL Hct 44.3 (42.0-52.0) % MCV 86.9 (80-100) fl MCH 29.0 (26-34) pg MCHC 33.4 (32-36) g/dl RDW 13.4 (11.5-14.5) % Plt Count 490 H (150-375) k/mm3 MPV 8.6 (7.4-10.4) fl Immature Gran % (Auto) 0.3 (0-0.5) % Neut % (Auto) 78.1 H (45.5-73.1) % Lymph % (Auto) 13.3 L (18.3-44.2) % [place] % (Auto) 7.4 (2.6-8.5) % Eos % (Auto) 0.3 (0-4.4) % Baso % (Auto) 0.6 (0.2-1.2) % Lymph # (Auto) 1.53 (0.9-3.2) K/mm3 [place] # (Auto) 0.9 H (0.1-0.6) K/mm3 Eos # (Auto) 0.0 (0-0.3) K/mm3 Baso # (Auto) 0.1 (0.0-0.1) K/mm3 Abs Immat Gran (auto) 0.03 (0.00-0.031) K/mm3 Absolute Neuts (auto) 9.0 H (1.3-6.7) K/mm3 Absolute Nucleated RBC 0.000 (0.0-0.012) K/mm3 Nucleated RBC % 0.0 (0.0-0.2) % Sodium 138 (137-145) mmol/L Potassium 3.7 (3.4-5.0) mmol/L Chloride 103 (98-107) mmol/L Carbon Dioxide 23 (22-30) mmol/L Anion Gap 12 (4-12) mmol/L BUN 9 (9-20) mg/dL Creatinine 1.06 (0.7-1.3) mg/dL Estim Creat Clear Calc Not Reportable Estimated GFR > 60 (59 - ) Glucose 107 (65-110) mg/dL Calcium 9.7 (8.4-10.2) mg/dL Total Bilirubin 0.9 (0.2-1.3) mg/dL AST 44 (17-59) U/L ALT 31 (6-50) U/L Alkaline Phosphatase 79 (38-126) U/L Total Protein 8.0 (6.3-8.2) g/dL Albumin 4.7 (3.5-5.1) g/dL Imaging Data Attestation: I personally reviewed and interpreted this imaging study as follows: Radiologist's impression: Impressions Humerus X-Ray 11/04/24 19:22 IMPRESSION: No acute osseous abnormality right humerus. Discharge Plan Discharge Clinical Impression: Laceration of right triceps muscle, Acute schizophrenia episode, Traumatic injury of upper arm Patient Disposition: Acute Care Hospital Condition: Serious Patient Language: Lao Follow-up/Referrals: PHYSICIAN,[employer] [Primary Care Provider] -
--- NOTE | 2024-11-04 18:51 | ECG_ITS ---
Test Date: 2024-11-04 19:14:48 Measurements Intervals [place] Rate: 74 P: 61 WI: 144 QRS: 56 QRSD: 103 T: 56 QT: 409 QTc: 456 Interpretive Statements SINUS RHYTHM INCOMPLETE RIGHT BUNDLE BRANCH BLOCK [90+ ms QRS DURATION, TERMINAL R IN V1/V2, 40+ ms S IN I/aVL/V4/V5/V6] No previous ECG available for comparison Electronically Signed On 11-05-2024 16:50:06 CDT by Nava Kulkarni M.D.
[2024-11-04] MEDS: TETANUS,DIPHTHERIA,AC PERTUSSIS ADULT (0.5 ML) BOOSTRIX IM (19:19)
[2024-11-04 19:24] LABS: Basophils Absolute Auto 0.1 K/mm3 (0.0-0.1); Basophils Percent Auto 0.6 % (0.2-1.2); Eosinophils Percent Auto 0.3 % (0-4.4); Hematocrit 44.3 % (42.0-52.0); Hemoglobin 14.8 g/dL (14.0-18.0); Immature Granulocyte Absolute 0.03 K/mm3 (0.00-0.031); Immature Granulocyte Percent A 0.3 % (0-0.5); Lymphocytes Absolute Auto 1.53 K/mm3 (0.9-3.2); Lymphocytes Percent Auto 13.3 % (18.3-44.2); Mean Corpuscular HGB Conc 33.4 g/dl (32-36); Mean Corpuscular Volume 86.9 fl (80-100); Mean Platelet Volume 8.6 fl (7.4-10.4); Monocytes Absolute Auto 0.9 K/mm3 (0.1-0.6); Monocytes Percent Auto 7.4 % (2.6-8.5); Neutrophils Percent Auto 78.1 % (45.5-73.1); Platelet Count Result 490 k/mm3 (150-375); Red Cell Distribution Width 13.4 % (11.5-14.5); White Blood Count 11.5 K/mm3 (4.5-10.0)
[2024-11-04 19:33] LABS: Alanine Aminotransferase 31 U/L (6-50); Albumin Level 4.7 g/dL (3.5-5.1); Alkaline Phosphatase 79 U/L (38-126); Anion Gap 12 mmol/L (4-12); Aspartate Amino Transferase 44 U/L (17-59); Bilirubin,Total 0.9 mg/dL (0.2-1.3); Blood Urea Nitrogen 9 mg/dL (9-20); Calcium 9.7 mg/dL (8.4-10.2); Carbon Dioxide 23 mmol/L (22-30); Chloride 103 mmol/L (98-107); Estimated Glomerular Filt Rate > 60; Glucose 107 mg/dL (65-110); Potassium 3.7 mmol/L (3.4-5.0); Sodium 138 mmol/L (137-145)
[2024-11-04 20:00] VITALS: BP 145/93; PULSE 71; RESP 18; O2SAT 100
[2024-11-04 20:23] VITALS: BP 152/93; PULSE 66; RESP 18; TEMP 36.6; O2SAT 99
== END 2024-11-04 20:30 | disposition short-term general hospital (02) ==
PROVIDERS: Emergency Provider Registered Nurse
DX: S46.321A Laceration of muscle, fascia and tendon of triceps, right arm, initial encounter (principal); F23 Brief psychotic disorder; Z23 Encounter for immunization; I45.10 Unspecified right bundle-branch block; W25.XXXA Contact with sharp glass, initial encounter
CPT/HCPCS: 36415; 73060; 80053; 85025; 90471; 90715; 93005; 99285